=== PATIENT | male | born 1955 | race Caucasian/White ===

== ENCOUNTER 2016-07-31 12:06 | Emergency (ER) | payer MEDICARE ==
[2016-07-31] MEDS ORDERED: Ibuprofen TAB* 400 MG PO ONE (13:36)
--- NOTE | 2016-07-31 13:40 | UC ---
Lower Extremity/Ankle HPI - HPI Summary HPI Summary: 61 yo M with left leg pain for a month, worse in the last few days. Does not associate injury with the pain, but has fallen in the past 3 months. Pain is worst in his right ant thigh, worse with weight bearing. Pt states he has tingling and pain in his right ant tibia. No def calf pain. No chest pain or SOB. No hx blood clots, PE or DVT in pt or family. - History of Current Complaint Chief Complaint: UCLowerExtremity Stated Complaint: LEFT LEG PAIN Time Seen by Provider: 07/31/16 13:29 Hx Obtained From: Patient Onset/Duration: Gradual Onset, Lasting Weeks, Still Present, Worse Since - few days Severity Initially: Moderate Severity Currently: Moderate Pain Intensity: 2 Pain Scale Used: 0-10 Numeric Aggravating Factor(s): Standing Able to Bear Weight: Yes - painful - Risk Factors DVT Risk Factors: Negative - Allergies/Home Medications Allergies/Adverse Reactions: Allergies Allergy/AdvReac Type Severity Reaction Status Date / Time Penicillins [PCN] Allergy Difficulty Verified 07/31/16 13:05 Breathing Haloperidol [From Haldol] AdvReac twitch Verified 07/31/16 13:05 PMH/Surg Hx/FS Hx/Imm Hx Previously Healthy: Yes - Surgical History Surgical History: Yes Surgery Procedure, Year, and Place: TONSILLECTOMY - Family History Known Family History: Positive: Cardiac Disease - Social History Alcohol Use: Occasionally Substance Use Type: None Smoking Status (MU): Never Smoked Tobacco Review of Systems Constitutional: Negative Skin: Negative Eyes: Negative ENT: Negative Respiratory: Negative Cardiovascular: Negative Gastrointestinal: Negative Genitourinary: Negative Motor: Negative Neurovascular: Negative Musculoskeletal: Arthralgia, Myalgia Neurological: Negative Psychological: Negative All Other Systems Reviewed And Are Negative: Yes Physical Exam Triage Information Reviewed: Yes Appearance: Well-Nourished, Ill-Appearing, Pain Distress Vital Signs: Initial Vital Signs Temp 99.5 F 07/31/16 12:52 Pulse 79 07/31/16 12:52 BP 96/61 07/31/16 12:52 Vital Signs Reviewed: Yes Eyes: Positive: Conjunctiva Clear ENT: Positive: Normal ENT inspection Neck: Positive: Supple Respiratory: Positive: Lungs clear, Normal breath sounds, No respiratory distress, No accessory muscle use Cardiovascular: Positive: RRR, No Murmur, Pulses Normal, Brisk Capillary Refill Abdomen Description: Positive: Nontender, Soft Bowel Sounds: Positive: Present Musculoskeletal: Positive: Strength Intact, ROM Intact, No Edema, Other: - no calf tenderness, pain right ant groin muscle tendon Neurological: Positive: Alert, Muscle Tone Normal Psychological Exam: Normal Skin Exam: Normal Lower Extremity Course/Dx - Course Course Of Treatment: left hip and pelvis xray: neg. US left leg: neg. Will advise limited wt bearing with crutches, NSAID, and f/u with ortho if no improvement - Differential Dx/Diagnosis Differential Diagnosis/HQI/PQRI: Contusion, DVT, Fracture (Closed), Sprain, Strain, Tendonitis Provider Diagnoses: left leg groin pull, muscle strain Discharge - Discharge Plan Condition: Stable Disposition: HOME Prescriptions: Ibuprofen TAB* [Motrin TAB* 600 MG] 600 mg PO Q6H PRN #30 tab PRN Reason: Pain Patient Education Materials: Crutch Instructions (ED), Muscle Strain (ED), Groin Strain (ED) Referrals: Anuel Mei MD [Medical Doctor] - 3 Days (follow up with the orthopedist if no improvement ) Evan Veloz PA [Primary Care Provider] -
--- NOTE | 2016-07-31 14:03 | RAD ---
HISTORY: Left hip pain, fall COMPARISONS: None VIEWS: 3, Frontal view of the pelvis with frontal and frog-leg views of the left hip FINDINGS: BONE DENSITY: Normal. BONES: There is no displaced fracture. JOINTS: There is moderate osteoarthritis of the hips ALIGNMENT: There is no dislocation. SOFT TISSUES: Unremarkable. OTHER FINDINGS: There are advanced degenerative changes of the lower lumbar spine IMPRESSION: NO ACUTE OSSEOUS INJURY. IF SYMPTOMS PERSIST, RECOMMEND REPEAT IMAGING.
--- NOTE | 2016-07-31 14:22 | RAD ---
Indication: Left leg edema. Duplex Doppler sonography of the deep venous system of the left lower extremity deep venous system was performed. Bilaterally the common femoral veins appear patent and compressible. Left proximal greater saphenous vein, proximal deep femoral vein, femoral vein, popliteal vein, posterior tibial veins and peroneal veins appear patent and compressible. IMPRESSION: NO EVIDENCE OF DEEP VENOUS THROMBOSIS IS IDENTIFIED.
[2016-07-31 14:23] VITALS: BP 97/62
== END 2016-07-31 15:24 | disposition home or self-care (01) ==
LOC: UCCORT 12:06
DX: S39.011A Strain of muscle, fascia and tendon of abdomen, initial encounter (principal)
CPT/HCPCS: 99213; A9270-GY; G0463

== ENCOUNTER 2016-10-20 17:54 | Emergency (ER) | payer MEDICARE ==
[2016-10-20 18:32] VITALS: BP 114/73
--- NOTE | 2016-10-20 19:37 | RAD ---
INDICATION: RIGHT elbow pain and worsening soft tissue swelling 1 week post fall. Redness and warmth around laceration on posterior aspect of elbow. COMPARISON: No relevant prior exams available on the [facility] PACS for comparison. TECHNIQUE: AP, lateral, and oblique views RIGHT elbow. REPORT: Significant soft tissue swelling over the dorsum superficial to the olecranon process. No conspicuous foreign body or subcutaneous emphysema. Negative for joint effusion, fracture, or malalignment. Diffuse mild osteophytosis. Calcific tendinopathy at the lateral epicondyle origin of the common extensor tendon. IMPRESSION: 1. Significant dorsal soft tissue swelling. 2. Mild osteoarthritis and stigmata of chronic lateral epicondylitis.
--- NOTE | 2016-10-20 19:52 | UC ---
Elbow Pain - HPI Summary HPI Summary: right elbow pain x 1 week s/p fall 1 week ago , injury to right elbow + pain and swelling, + redness no fever, no chills - History of Current Complaint Chief Complaint: UCUpperExtremity Stated Complaint: S/P FALL -RT ELBOW PAIN Time Seen by Provider: 10/20/16 18:24 Hx Obtained From: Patient Onset/Duration: Weeks - 1, Still Present Severity Initially: Moderate Severity Currently: Severe Pain Intensity: 3 Pain Scale Used: 0-10 Numeric Location Of Pain: Is Discrete @ - right elbow Character: Aching, Throbbing Aggravating Factor(s): Movement Alleviating Factor(s): Rest Associated Signs And Symptoms: Positive: Swelling, Redness, Weakness. Negative : Bruising, Fever - Allergies/Home Medications Allergies/Adverse Reactions: Allergies Allergy/AdvReac Type Severity Reaction Status Date / Time Penicillins [PCN] Allergy Difficulty Verified 10/20/16 18:26 Breathing Haloperidol [From Haldol] AdvReac twitch Verified 10/20/16 18:26 PMH/Surg Hx/FS Hx/Imm Hx Cardiovascular History: Hypertension - Surgical History Surgical History: Yes Surgery Procedure, Year, and Place: TONSILLECTOMY - Family History Known Family History: Positive: Cardiac Disease, Hypertension - Social History Alcohol Use: Occasionally Substance Use Type: None Smoking Status (MU): Never Smoked Tobacco Review of Systems Constitutional: Negative Skin: Negative Eyes: Negative ENT: Negative Respiratory: Negative Cardiovascular: Negative All Other Systems Reviewed And Are Negative: Yes Physical Exam Triage Information Reviewed: Yes Appearance: Well-Appearing, No Pain Distress, Well-Nourished Vital Signs: Initial Vital Signs Temp 99.3 F 10/20/16 18:28 Pulse 63 10/20/16 18:28 Resp 16 10/20/16 18:28 BP 114/73 10/20/16 18:28 Pulse Ox 99 10/20/16 18:28 Vital Signs Reviewed: Yes Eye Exam: Normal Eyes: Positive: Conjunctiva Clear ENT: Positive: Normal ENT inspection, Hearing grossly normal, Pharynx normal Neck: Positive: Supple, Nontender, No Lymphadenopathy Respiratory: Positive: Chest non-tender, Lungs clear, Normal breath sounds Cardiovascular: Positive: RRR, No Murmur, Pulses Normal Musculoskeletal: Positive: Other: - right elbow: + swelling, erythema, tenderness and loecrenone bursa Elbow Pain Course/Dx - Differential Dx/Diagnosis Provider Diagnoses: elbow bursitis Discharge - Discharge Plan Condition: Stable Disposition: HOME Prescriptions: Clindamycin Cap(NF) [Clindamycin Cap 300 mg Cap(NF)] 300 mg PO TID #30 cap Patient Education Materials: Elbow Bursitis (ED) Referrals: Evan Veloz PA [Primary Care Provider] - 5 Days
== END 2016-10-20 19:42 | disposition home or self-care (01) ==
LOC: UCCORT 17:54
DX: M70.31 Other bursitis of elbow, right elbow (principal); Z88.5 Allergy status to narcotic agent; Z88.0 Allergy status to penicillin; I10 Essential (primary) hypertension
CPT/HCPCS: 99212; G0463

== ENCOUNTER 2017-04-11 07:35 | Emergency (ER) | payer MEDICARE ==
[2017-04-11 08:21] VITALS: BP 88/56
--- NOTE | 2017-04-11 08:31 | UC ---
Respiratory Complaint HPI - HPI Summary HPI Summary: slight nonproductive cough for over a week. very fatigued but working alot. denies any fever, chills , no c/p or sob. ears feel full and he has sinus congestion at this time. taking nyquil at night for congestion and ibuprofen for ear pressure. - History of Current Complaint Chief Complaint: UCGeneralIllness Stated Complaint: STYLES/COUGH/FEVER Time Seen by Provider: 04/11/17 08:12 Hx Obtained From: Patient Onset/Duration: Lasting Weeks Timing: Constant Severity Initially: Moderate Severity Currently: Moderate Pain Intensity: 4 Character: Cough: Nonproductive Alleviating Factors: OTC Meds Associated Signs And Symptoms: Positive: Nasal Congestion - Risk Factors Cardiac Risk Factors: Hypertension, Elevated Lipids Pseudomonas Risk Factors: Negative Tuberculosis Risk Factors: Negative - Allergies/Home Medications Allergies/Adverse Reactions: Allergies Allergy/AdvReac Type Severity Reaction Status Date / Time haloperidol [From Haldol] Allergy See Comment Verified 04/11/17 08:01 Penicillins Allergy Difficulty Verified 04/11/17 08:01 Breathing Home Medications: Home Medications Antidepressant 300 mg PO DAILY 04/11/17 [History Confirmed 04/11/17] Dm/Acetaminophen/Doxylamine [Vicks Nyquil Cold & Flu Liquid] 236 ml PO BEDTIME PRN 04/11/17 [History Confirmed 04/11/17] Melatonin/Pyridoxine HCl (B6) [Melatonin 1 mg Tablet] 0 tab PO BEDTIME 04/11/17 [History Confirmed 04/11/17] Multivitamins/Minerals TAB* [Theragran/minerals TAB*] 1 tab PO DAILY 04/11/17 [ History Confirmed 04/11/17] Tylenol Flu 1 dose PO Q3H PRN 04/11/17 [History Confirmed 04/11/17] PMH/Surg Hx/FS Hx/Imm Hx Previously Healthy: Yes Endocrine History: Dyslipidemia Cardiovascular History: Hypertension Psychological History: Depression - Surgical History Surgical History: Yes Surgery Procedure, Year, and Place: TONSILLECTOMY - Family History Known Family History: Positive: Cardiac Disease, Hypertension - Social History Occupation: Employed Full-time Lives: With Family Alcohol Use: Rare Substance Use Type: None Smoking Status (MU): Never Smoked Tobacco Have You Smoked in the Last Year: No Review of Systems Constitutional: Fatigue Skin: Negative Eyes: Negative ENT: Ear Ache, Sinus Congestion Respiratory: Cough - nonprod Cardiovascular: Negative Gastrointestinal: Negative Genitourinary: Negative Motor: Negative Neurovascular: Negative Neurological: Headache Psychological: Negative Is Patient Immunocompromised?: No All Other Systems Reviewed And Are Negative: Yes Physical Exam Triage Information Reviewed: Yes Appearance: Ill-Appearing Vital Signs: Initial Vital Signs Temp 99.4 F 04/11/17 08:09 Pulse 67 04/11/17 08:09 Resp 20 04/11/17 08:09 BP 88/56 04/11/17 08:09 Pulse Ox 99 04/11/17 08:09 Vital Signs Reviewed: Yes Eye Exam: Normal ENT Exam: Normal Neck exam: Normal Respiratory Exam: Normal Cardiovascular Exam: Normal Abdominal Exam: Normal Bowel Sounds: Positive: Present Neurological Exam: Normal Psychological Exam: Normal Skin Exam: Normal UC Diagnostic Evaluation - Laboratory O2 Sat by Pulse Oximetry: 99 Respiratory Course/Dx - Course Course Of Treatment: take abx as directed - take with food to reduce gi upset and discussed use and common side effects of med. BP a little bit low - hold dose of lisinopril tonight and call pcp to have it rechecked early this week. increase fluid intake daily to prevent dehydration. take tylenol or ibuprofen as directed on bottle for pain/fever. f/u pcp if symptoms not resolving or getting worse - Differential Dx/Diagnosis Differential Diagnosis/HQI/PQRI: Sinusitis Provider Diagnoses: sinusitis Discharge - Discharge Plan Condition: Good Disposition: HOME Prescriptions: DOXYcycline CAP(*) [DOXYcycline 100MG CAP(*)] 100 mg PO DAILY 10 Days #20 cap Patient Education Materials: Sinusitis (ED) Referrals: Evan Veloz PA [Primary Care Provider] - 1 Week
== END 2017-04-11 09:07 | disposition home or self-care (01) ==
LOC: UCCORT 07:35
DX: J32.9 Chronic sinusitis, unspecified (principal); Z88.0 Allergy status to penicillin; Z88.8 Allergy status to other drugs, medicaments and biological substances
CPT/HCPCS: 99212; G0463

== ENCOUNTER 2017-06-02 14:03 | Emergency (ER) | payer MEDICARE ==
[2017-06-02 14:30] VITALS: BP 119/78
--- NOTE | 2017-06-02 15:05 | UC ---
Hip/Pelvis Pain - HPI Summary HPI Summary: 62 yo male with 2 month hx of progressively worsening left hip pain point to area around greater troch as were it hurts the most hurts to roll on left side hurt to bear wt worse with stairs /getting into and out of chair hx chronic constipation since a young adult no bladder dysfunction no back pain no leg numbness - History Of Current Complaint Chief Complaint: UCLowerExtremity Stated Complaint: LEFT LEG/HIP COMPLAINT Time Seen by Provider: 06/02/17 14:45 Hx Obtained From: Patient Onset/Duration: Gradual Onset, Lasting Weeks Timing: Constant Severity Initially: Mild Severity Currently: Moderate Pain Intensity: 6 Pain Scale Used: 0-10 Numeric Location: Discrete At: - see image Character Of Pain: Dull, Aching Aggravating Factor(s): Movement, Weight Bearing Alleviating Factor(s): Nothing - Allergies/Home Medications Allergies/Adverse Reactions: Allergies Allergy/AdvReac Type Severity Reaction Status Date / Time haloperidol [From Haldol] Allergy See Comment Verified 04/11/17 08:01 Penicillins Allergy Difficulty Verified 04/11/17 08:01 Breathing PMH/Surg Hx/FS Hx/Imm Hx Previously Healthy: Yes Endocrine History: Dyslipidemia Cardiovascular History: Hypertension - Surgical History Surgical History: Yes Surgery Procedure, Year, and Place: TONSILLECTOMY - Family History Known Family History: Positive: Cardiac Disease, Hypertension - Social History Alcohol Use: Rare Substance Use Type: None Smoking Status (MU): Never Smoked Tobacco Have You Smoked in the Last Year: No Review of Systems Constitutional: Negative Skin: Negative Eyes: Negative ENT: Negative Respiratory: Negative Cardiovascular: Negative Gastrointestinal: Negative Genitourinary: Negative Motor: Negative Neurovascular: Negative Musculoskeletal: Arthralgia Neurological: Negative Psychological: Negative Is Patient Immunocompromised?: No All Other Systems Reviewed And Are Negative: Yes Physical Exam Triage Information Reviewed: Yes Appearance: Well-Appearing, No Pain Distress, Well-Nourished Vital Signs: Initial Vital Signs Temp 98.4 F 06/02/17 14:20 Pulse 80 06/02/17 14:20 Resp 20 06/02/17 14:20 BP 119/78 06/02/17 14:20 Pulse Ox 98 06/02/17 14:20 Eyes: Positive: Conjunctiva Clear ENT: Positive: Hearing grossly normal. Negative: Nasal congestion, Nasal drainage, Muffled voice, Hoarse voice Neck: Positive: Supple Respiratory: Positive: Normal breath sounds, No respiratory distress, No accessory muscle use, Respiratory distress Cardiovascular: Positive: RRR, No Murmur Musculoskeletal: Positive: No Edema, Other: - see image Neurological: Positive: Alert Psychological Exam: Normal Skin Exam: Normal Diagnostics - Radiology No standard instances Xray Interpretation: No Acute Changes - Degenerative changes of the left hip Radiology Interpretation Completed By: Radiologist Hip Injury Course/Dx - Differential Dx/Diagnosis Provider Diagnoses: Left greater trochanteric bursitis Discharge - Sign-Out/Discharge Documenting (check all that apply): Discharge - Discharge Plan Condition: Stable Disposition: HOME Prescriptions: Naproxen TAB* [Naprosyn 375 mg TAB*] 375 mg PO BID PRN #30 tab PRN Reason: Pain Patient Education Materials: Hip Bursitis (ED) Referrals: Evan Veloz PA [Primary Care Provider] - 1 Week Additional Instructions: PT consult heat - Billing Disposition and Condition Condition: STABLE Disposition: HOME Images Front/Back of Body, Lg (Herkimer): 1 - tender great troch/limited ROM. (-) SLR
--- NOTE | 2017-06-02 15:14 | RAD ---
Indication: Left hip pain. 2 views of left hip and an AP view of the pelvis demonstrates degenerative changes of left hip with osteophyte formation. No fracture is identified. Pelvic ring is otherwise unremarkable. No pelvic masses are identified. IMPRESSION: Degenerative changes of the left hip.
== END 2017-06-02 15:32 | disposition home or self-care (01) ==
LOC: UCCORT 14:03
DX: M70.62 Trochanteric bursitis, left hip (principal); Z88.0 Allergy status to penicillin; Z88.8 Allergy status to other drugs, medicaments and biological substances; I10 Essential (primary) hypertension
CPT/HCPCS: 99212; G0463

== ENCOUNTER 2017-10-07 08:13 | Inpatient (IN) | payer MEDICARE ==
--- NOTE | 2017-09-27 13:56 | HP ---
Amended report to enter cosigning physician. HISTORY AND PHYSICAL: DATE OF ADMISSION/SURGERY: 10/07/17 DATE OF OFFICE VISIT: 09/27/17 SURGEON: Jemima Agee MD* (dictated by MURIEL Almeida). PROCEDURE: Left total hip arthroplasty. CHIEF COMPLAINT: Left hip pain. HISTORY OF PRESENT ILLNESS: Mr. Barahona is a 62-year-old gentleman with complaints of left hip pain secondary to end-stage osteoarthritis. He has failed a conservative treatment and elected to proceed with a left total hip arthroplasty, which is scheduled for 10/07/17. PAST MEDICAL HISTORY: Hypertension, high cholesterol, depression and anxiety. PAST SURGICAL HISTORY: Tonsillectomy, adenoidectomy and teeth extraction. CURRENT MEDICATIONS: 1. Tramadol 50 mg as needed. 2. Simvastatin 20 mg daily. 3. Tamsulosin 0.4 mg daily. 4. Lisinopril 10 mg daily. 5. Duloxetine 60 mg twice daily. 6. Wellbutrin 150 mg daily. 7. Vitamin D. 8. Aspirin 81 mg a day. ALLERGIES: PENICILLIN, ZOLOFT, PAXIL, and HALDOL. FAMILY HISTORY: Diabetes, heart disease, hypertension, stroke, and cancer. SOCIAL HISTORY: This is a 62-year-old lives with his girlfriend. He does not smoke or use drugs. Uses occasional alcohol. REVIEW OF SYSTEMS: A complete 14-point review of systems was all negative and noncontributory. He denies history of DVT, PE, hepatitis, HIV, or anesthesia problems. PHYSICAL EXAMINATION GENERAL: Well developed, well nourished, in no acute distress. VITAL SIGNS: He stands 67 inches tall, weighs 202 pounds. His blood pressure is 111/69, his heart rate is 82. HEENT: Normocephalic, atraumatic. NECK: Supple. No palpable lymph nodes. PULMONARY: Lungs are clear to auscultation bilaterally. CARDIO: Regular rate and rhythm. Strong S1, S2. ABDOMEN: Soft, nontender, nondistended. NEUROLOGICAL: He is alert and oriented x3. MUSCULOSKELETAL: Left lower extremity, skin is intact. There are no open wounds or abrasions. He walks with an antalgic type gait favoring to his left hip. He has decreased internal and external rotation of the left hip. 2+ dorsalis pedis pulses. Intact sensation. His lower extremity muscle group strengths are intact at 5/5. ASSESSMENT AND PLAN: Mr. Barahona is a 62-year-old gentleman with end-stage osteoarthritis of the left hip. He has failed conservative treatment and elected to proceed with a left total hip arthroplasty, which is scheduled for with Dr. Agee. Dr. Agee discussed the risks and benefits of the surgery at today's visit and all of his questions were answered. He will follow up with Dr. Agee in 2 weeks after the surgery. MURIEL ALMEIDA [id number]/[facility] #: [id number] TELMA
[~2017-10-07 08:13] MED LIST: Buffered Lidocaine 0.9% SYRIN* 5 ML/SYR SYRINGE INTRADERM ONE; Dexamethasone IV* 4 MG/ML 1 ML (4 MG) IV SLOW PU ONE; Famotidine IV* 10 MG/ML 2 ML (20 mg) IV ONE
--- OUTSIDE RECORDS SUMMARY | 2017-10-07 08:20 | XMS REPORT ---
:1955 External Reference #:[id number] Author Organization [facility] Address [address] [place] [address] [place] [address] Phone [phone] Care Team Providers Name Role Phone Milagros Hussein MD Primary Care Physician Unavailable Payers Type Date Identification Numbers Payment Provider Subscriber Commercial Policy Number: [id number] [employer] CHRIS Barahona PayID: [id number] [address] [address] [place] [address] Problems Date Description Provider Status Onset: 09/10/2017 Localized, primary osteoarthritis of the Jemima Tobi Agee Active pelvic region and thigh Family History Date Family Member(s) Problem(s) Comments General Diabetes General Heart Disease General Hypercholesterolemia General Stroke General Cancer Social History Type Date Description Comments Lives With friend Occupation Disabled ETOH Use Occasionally consumes alcohol Smoking Patient has never smoked Exercise Type/Frequency Exercises regularly Allergies, Adverse Reactions, Alerts Date Description Reaction Status Severity Comments 09/10/2017 Penicillin active 09/27/2017 Zoloft active 09/27/2017 Paxil active 09/27/2017 Haldol active Medications Medication Date Status Form Strength Qnty SIG Indications Ordering Provider Tramadol HCL Active Tablets 50mg 28tabs 1 tab every Jemima 018 6 hours as Anuel needed for Tobi pain BP Pill Active Unknown 000 Anxiety Pill Active Unknown 000 Aspirin 81 Low Active 1 by mouth Unknown Dose 000 every day Vitamin D Active Unknown 000 Bupropion HCL Active Tablets 150mg Take One Unknown ER (SR) 000 ER 12HR Tablet By Mouth Every Day Duloxetine HCL Active Caps DR 60mg Unknown 000 Part Lisinopril Active Tablets 10mg Veloz, 000 Armin Carmen, SHAWANDA Diazepam Active Tablets 10mg Take 1 Unknown 000 Tablet By Mouth 1 Hour Before Injection Or Procedure Max Day 1 Simvastatin Active Tablets 20mg Take One Unknown 000 Tablet By Mouth AT Bedtime Vital Signs Date Vital Result Comment 09/27/2017 Height 67 inches 5'7" Weight 202.00 lb BP Systolic 111 mmHg BP Diastolic 69 mmHg Respiratory Rate 16 /min Pain Level 7 BMI (Body Mass Index) 31.6 kg/m2 09/10/2017 Height 67 inches 5'7" Weight 203.00 lb Heart Rate 100 /min BP Systolic 120 mmHg BP Diastolic 74 mmHg BMI (Body Mass Index) 31.8 kg/m2 Results Description No Information Procedures Description No Information Encounters Type Date Location Provider CPT E/M Dx Office Visit 09/10/2017 [facility] Jemima Agee M.D. [id number] M25.551 8:30a Of ..A. M25.552 M16.11 M16.12 Plan of Care Future Appointment(s):10/27/2017 11:15 am - Jemima Agee M.D. at [facility].10/07/2017 3:30 pm - [facility]10/07/2017 3:30 pm - MURIEL Colindres at [facility].10/07/2017 3:30 pm - Jemima Agee M.D. at [facility].09/27/2017 - Jemima Agee M.D.M25.552 Pain in left hipNew Xrays:Pelvis 1-2 VWSFollow up:Follow up: 2 weeks after icdjrinD52.12 Unilateral primary osteoarthritis, left hip
--- OUTSIDE RECORDS SUMMARY | 2017-10-07 08:20 | XMS REPORT ---
:1955 External Reference #:[id number] Author Organization [facility] Address [address] [place] [address] Phone [phone] Care Team Providers Name Role Phone Milagros Hussein MD Care Team Information Senior Court Office Assistant Unavailable Milagros Hussein MD Primary Care Physician Unavailable Payers Type Date Identification Numbers Payment Provider Subscriber Commercial Policy Number: [id number] [employer] Rajat Barahona PayID: [id number] [address] [address] [place] [address] Medigap Part B PayID: [id number] [facility] Rajat Barahona [facility] [address] [place] [address] Problems Date Description Provider Status Onset: 09/06/2017 Essential hypertension Milagros Hussein MD Active Onset: 01/06/2011 Strain of rotator cuff capsule Jerry Funez MD Active Onset: 07/05/2017 Arthralgia of the pelvic region and Milagros Hussein MD Active thigh Onset: 07/05/2017 Strabismus Milagros Hussein MD Active Onset: 07/05/2017 Schizoaffective disorder, depressive Milagros Hussein MD Active type Onset: 07/05/2017 Major depressive disorder, single Milagros Hussein MD Active episode, unspecified Onset: 07/05/2017 Needle phobia Milagros Hussein MD Active Onset: 07/29/2017 Localized, primary osteoarthritis of Narciso Jacques M.D. Active the pelvic region and thigh Onset: 09/06/2017 Trochanteric bursitis Milagros Hussein MD Active Onset: 09/06/2017 Osteoarthritis of hip, unspecified Milagros Hussein MD Active Family History Date Family Member(s) Problem(s) Comments General Diabetes General Lung Cancer Father due to COPD () Father Depression Father Heart Disease Mother due to Cancer () Mother Anxiety Mother Chronic Obstructive Pulmonary Disease (COPD) Mother Lung Cancer Children 1 First Son Anxiety Siblings 1 First Sister Depression Social History Type Date Description Comments Education Highest level completed, 9th in special ed, can't read well grade Lives With Girlfriend Anne Marie Mcghee Occupation Disabled psychiatric, schizophrenia in past Cigarette Use Never Smoked Cigarettes ETOH Use Rarely consumes alcohol Smoking Patient has never smoked Recreational Drug Use Never Used Drugs Daily Caffeine Consumes on average 1 cup of regular coffee per day Allergies, Adverse Reactions, Alerts Date Description Reaction Status Severity Comments 01/06/2011 Penicillins active Unsure of reaction 01/06/2011 Haldol active Bad Twitch 07/05/2017 Zoloft active 09/30/2017 Paxil active Medications Medication Date Status Form Strength Qnty SIG Indications Ordering Provider Aspir-81 07/05/ Active Tablets DR 81mg 1 by mouth 2017 every day MD Keenan Multivitamin 07/05/ Active Tablets 30tabs 1 by mouth 2017 every day MD Keenan Vitamin D-3 07/05/ Active Capsules 1000Unit 100cap 1 by mouth 2017 s every day MD Keenan Amitriptyline / Active Tablets 50mg Take One Unknown HCL 0000 Tablet By Mouth AT Bedtime Bupropion HCL / Active Tablets ER 150mg Take One Unknown ER (SR) 0000 12HR Tablet By Mouth Every Day Lisinopril / Active Tablets 10mg Take 1/2 Unknown 0000 Tablet By Mouth Every Day Tamsulosin HCL / Active Capsules 0.4mg Take One Unknown 0000 Capsule By Mouth Every Day Simvastatin / Active Tablets 20mg Take One Unknown 0000 Tablet By Mouth AT Bedtime Duloxetine HCL / Active Caps DR 60mg 1 by mouth Unknown 0000 Part twice a day Diazepam 09/06/ Hx Tablets 10mg 3tabs take one F40.231 2017 - tablet by Keenan 09/30/ mouth 1 hr 2017 before injection or procedure Reference #: [id number] F25.1 Diclofenac 08/28/2017 - Hx Gel 1% 100gm 2 g topica Narciso Sodium 09/30/2017 right hip 4 Pompo, M.D. times a day Diclofenac 08/16/2017 - Hx Cream 3% 5000gm apply 4g to M16. Narciso Sodium 08/28/2017 left hip 4 12 Pompo, M.D. times daily Lorazepam 07/05/2017 - Hx Tablets 2mg 10tabs 1 Tab 30 Milagros 09/06/2017 Min Before MD Keenan Injection; May Repeat After 1 HR If Needed Celecoxib 07/05/2017 - Hx Capsules 200mg 14caps take one M25. 09/30/2017 capsule by 552 MD Keenan mouth every day with food or snack Seroquel - Hx Tablets 100mg 1 PO QHS Unknown 09/30/2017 Duloxetine HCL - Hx Caps DR Part 30mg 1 PO qd Unknown 09/30/2017 Vital Signs Date Vital Result Comment 09/30/2017 BP Systolic Sitting Left Arm 126 mmHg BP Diastolic Sitting Left Arm 72 mmHg Heart Rate 80 /min Respiratory Rate 18 /min Height 67 inches 5'7" Weight 205.00 lb BMI (Body Mass Index) 32.1 kg/m2 BSA (Body Surface Area) 2.04 m2 [place] body weight in kilograms 67 09/06/2017 BP Systolic 134 mmHg BP Diastolic 82 mmHg Body Temperature 97.0 F Heart Rate 88 /min Respiratory Rate 20 /min Height 67 inches 5'7" Weight 202.00 lb BMI (Body Mass Index) 31.6 kg/m2 BSA (Body Surface Area) 2.03 m2 [place] body weight in kilograms 67 O2 % BldC Oximetry 97 % 08/16/2017 BP Systolic Sitting Left Arm 113 mmHg BP Diastolic Sitting Left Arm 71 mmHg Body Temperature 98.4 F Heart Rate 86 /min Respiratory Rate 18 /min Height 67 inches 5'7" Weight 199.00 lb BMI (Body Mass Index) 31.2 kg/m2 BSA (Body Surface Area) 2.02 m2 [place] body weight in kilograms 67 O2 % BldC Oximetry 97 % 07/29/2017 BP Systolic Sitting Left Arm 118 mmHg BP Diastolic Sitting Left Arm 64 mmHg Body Temperature 97.6 F Heart Rate 86 /min Respiratory Rate 17 /min Height 67 inches 5'7" Weight 199.00 lb BMI (Body Mass Index) 31.2 kg/m2 BSA (Body Surface Area) 2.02 m2 [place] body weight in kilograms 67 07/05/2017 BP Systolic 112 mmHg BP Diastolic 68 mmHg Body Temperature 97.6 F Heart Rate 77 /min Respiratory Rate 17 /min Height 67 inches 5'7" Weight 198.00 lb BMI (Body Mass Index) 31.0 kg/m2 BSA (Body Surface Area) 2.01 m2 [place] body weight in kilograms 67 O2 % dC Oximetry 96 % 01/06/2011 Height 67 inches 5'7" Weight 216.00 lb BMI (Body Mass Index) 33.8 kg/m2 Results Test Date Test Result H/L Range Note Comprehensive Metabolic Panel 09/23/2017 Glucose 96 mg/dL 74-106 1 BUN 15 mg/dL 7-18 1 Creatinine 0.9 mg/dL 0.6-1.3 1 Glom Filtration Rate, Estimate >60 mL/min >60 1 If >60 mL/min >60 1, 2 BUN/Creat 16.6 ratio 1 Sodium 140 mmol/L 136-145 1 Potassium 4.2 mmol/L 3.5-5.1 1 Chloride 105 mmol/L 98-107 1 Carbon Dioxide 29 mmol/L 21-32 1 Anion Gap 6 mEq/L Low 8-16 1 Calcium 8.7 mg/dL 8.5-10.1 1 Total Protein 7.3 g/dL 6.4-8.2 1 Albumin 3.5 g/dL 3.4-5.0 1 Globulin 3.8 g/dL 1.9-4.3 1 Alb/Glob 0.9 ratio 1 Bilirubin,Total 0.5 mg/dL 0.2-1.0 1 Sgot/Ast 13 U/L Low 15-37 1, 3 SGPT/Alt 24 U/L 12-78 1 Alkaline Phosphatase 90 U/L 45-117 1 Comprehensive Metabolic Panel 08/31/2017 Glucose 104 mg/dL 74-106 4 BUN 15 mg/dL 7-18 4 Creatinine 0.9 mg/dL 0.6-1.3 4 Glom Filtration Rate, Estimate >60 mL/min >60 4 If >60 mL/min >60 4, 5 BUN/Creat 16.6 ratio 4 Sodium 143 mmol/L 136-145 4 Potassium 4.3 mmol/L 3.5-5.1 4 Chloride 106 mmol/L 98-107 4 Carbon Dioxide 31 mmol/L 21-32 4 Anion Gap 6 mEq/L Low 8-16 4 Calcium 8.5 mg/dL 8.5-10.1 4 Total Protein 7.1 g/dL 6.4-8.2 4 Albumin 3.7 g/dL 3.4-5.0 4 Globulin 3.4 g/dL 1.9-4.3 4 Alb/Glob 1.1 ratio 4 Bilirubin,Total 0.6 mg/dL 0.2-1.0 4 Sgot/Ast 16 U/L 15-37 4 SGPT/Alt 23 U/L 12-78 4 Alkaline Phosphatase 86 U/L 45-117 4 LDL Cholesterol Profile 08/31/2017 Cholesterol 139 mg/dL <200 4, 6 Triglycerides 74 mg/dL <150 4, 7 HDL Cholesterol 37 mg/dL Low >40 4, 8 LDL-Cholesterol 87 mg/dL < 100 4, 9 CBS W/Automated Diff 08/31/2017 White Blood Count 5.9 K/uL 3.4-10.5 4 Red Blood Count 4.93 M/uL 4.20-5.80 4 Hemoglobin 14.6 gm/dL 12.8-17.0 4 Hematocrit 44.1 % 38.0-48.0 4 Mean Cell Volume 89.5 fl 80.0-96.0 4 Mean Corpuscular HGB 29.6 pg 27.0-33.0 4 Mean Corpuscular HGB Conc 33.1 g/dL 31.7-36.0 4 Platelet Count 168 K/uL 155-360 4 Red Cell Distri Width SD 40.3 fl 36-51 4 Red Cell Distri Width %CV 12.7 % 11.6-15.8 4 Mean Platelet Volume 10.3 fL 6.6-10.6 4 Neut% 67.8 % 33.0-73.0 4 Lymph % 22.0 % 20.0-42.0 4 [place] % 5.6 % 0.0-10.0 4 Eo% 4.1 % 0.0-6.6 4 Bas% 0.5 % 0.0-1.1 4 Neut# 4.02 K/uL 1.8-7.0 4 Lymph # 1.30 K/uL 1.0-4.0 4 [place] # 0.33 K/uL 0.0-0.8 4 Eos # 0.24 K/uL 0.0-0.5 4 Baso # 0.03 K/uL 0.0-0.1 4 Vitamin B12 And Folate 02/12/2015 Vitamin B12 318 pg/mL 193-986 Folic Acid 10.8 ng/mL 3.1-17.5 Laboratory test finding 02/12/2015 Ferritin 53 ng/mL 26-388 1 M16.9, M70.62, M25.552 has appt 09/30/17 for surgical clearance 2 Note: Persistent reduction for 3 months or more in an eGFR <60 mL/min/1.73 m2 defines CKD. Patients with eGFR values >/=60 mL/min/1.73 m2 may also have CKD if evidence of persistent proteinuria is present. The original MDRD equation for estimated GFR is not valid for patients less than 18 years of age. Additional information may be found at www.kdoqi.org. 3 Values below the stated reference ranges of AST and ALT can be seen in normal populations. Clinical correlation is suggested. 4 I10 E78.5 Z13.0 5 Note: Persistent reduction for 3 months or more in an eGFR <60 mL/min/1.73 m2 defines CKD. Patients with eGFR values >/=60 mL/min/1.73 m2 may also have CKD if evidence of persistent proteinuria is present. The original MDRD equation for estimated GFR is not valid for patients less than 18 years of age. Additional information may be found at www.kdoqi.org. 6 Reference Guidelines*: Desirable: ........... < 200 mg/dL Borderline High: ..... 200-239 mg/dL High: ................ >=240 mg/dL * The National Cholesterol Education Program (NCEP) 7 Reference Guidelines*: Normal: ............. < 150 mg/dL Borderline High: .... 150-199 mg/dL High: ............... 200-499 mg/dL Very High: .......... > 500 mg/dL * Source: National Cholesterol Education Program (NCEP) 8 Reference Guidelines*: Low HDL: ..... < 40 mg/dL Normal: ..... 40-60 mg/dL Desirable: ... > 60 mg/dL *The National Cholesterol Education Program(NCEP) 9 Reference Guidelines*: Optimal:........... <100 mg/dL Near Optimal....... 100-129 mg/dL Borderline High.... 130-159 mg/dL High............... 160-189 mg/dL Very High.......... >=190 mg/dL * Source: National Cholesterol Education Program (NCEP) Procedures Date CPT Code Description Status 07/29/2017 55284 Radiologic Exam Hip Unilateral With Pelvis 2-3 Views Completed 03/08/2015 95255 Psychiatric Diag Eval W/Medical Service Completed 03/07/2015 02674 EKG Interpretation And Report Only Completed 02/19/2011 49466 EKG Interpretation And Report Only Completed Encounters Type Date Location Provider CPT E/M Dx Office Visit 09/06/2017 10:45a [facility] [place] [address] M16.9 M70.62 F40.231 I10 F25.1 Office Visit 08/16/2017 9:15a [facility] Narciso Jacques M.D. 31111 M16.12 Office Visit 07/29/2017 2:30p [facility] Narciso Jacques M.D. 51705 M25.552 M16.12 Office Visit 07/05/2017 10:15a [facility] [place] [address] M25.552 H50.9 F25.1 F32.9 F40.231 Office Visit 03/08/2015 11:23a [facility] Jose Antonio Gilbert M.D. 02848 F25.1 Medical Center Office Visit 02/06/2015 3:13p [facility] Jose Antonio Gilbert M.D. 69736 F32.9 Medical Center Office Visit 01/06/2011 11:10a Orthopaedic Office Jerry Funez 63444 840.4 Plan of Care Future Appointment(s):01/07/2018 10:15 am - Milagros Hussein MD at [facility]
--- OUTSIDE RECORDS SUMMARY | 2017-10-07 08:20 | XMS REPORT ---
:1955 External Reference #:[id number] Author Organization [facility] Address [address] [address] [place] [address] Phone [phone] Care Team Providers Name Role Phone Milagros Hussein MD Primary Care Physician Unavailable Payers Type Date Identification Numbers Payment Provider Subscriber Commercial Policy Number: [id number] [employer] [place] Rajat Barahona PayID: [id number] [address] [address] [place] [address] Problems Date Description Provider Status Onset: 09/10/2017 [...] Reaction Status Severity Comments 09/10/2017 Penicillin active Medications Medication Date Status Form Strength Qnty SIG Indications Ordering Provider Tramadol HCL 09/11/19 Active Tablets 50mg 28tabs 1 tab Jemima 18 every 6 Tobi Agee hours as needed for pain BP Pill Active Unknown 00 Anxiety Pill Active Unknown 00 Aspirin 81 Low Active 1 by Unknown Dose 00 mouth every day Vitamin D Active Unknown 00 Vital Signs Date Vital Result Comment 09/10/2017 Height 67 inches 5'7" Weight 203.00 lb Heart Rate 100 /min BP Systolic 120 mmHg BP Diastolic 74 mmHg BMI (Body Mass Index) 31.8 kg/m2 Results Description No Information Procedures Description No Information Plan of Care Future Appointment(s):10/06/2017 9:30 am [facility] - Jemima Agee M.D.M25.551 Pain in right hipM25.552 Pain in left hipM16.11 Unilateral primary osteoarthritis, right hipM16.12 Unilateral primary osteoarthritis, left hipFollow up:Follow up: 7- 10 days before surgery
[2017-10-07] MEDS ORDERED: Dexamethasone IV* 4 MG/ML 1 ML (4 MG) ONE (08:26)
[2017-10-07] MEDS ORDERED: Clindamycin 900 MG IVPREMIX(* 900 MG/50 ML SDV IV ONE (08:26)
[2017-10-07] MEDS ORDERED: Famotidine IV* 10 MG/ML 2 ML (20 mg) ONE (08:26)
[2017-10-07] MEDS ORDERED: celeCOXIB CAP* 200 MG PO ONE (11:06)
[2017-10-07] MEDS ORDERED: Gabapentin CAP(*) 300 MG PO ONE (11:07)
[2017-10-07] MEDS ORDERED: Ropivacaine (OR use only) 2 MG/ML 10 ML ONE (11:10)
[2017-10-07] MEDS ORDERED: ROPIVACAINE 5 MG/ML 30 ML BTL (0.5%) ONE (11:10)
[2017-10-07] MEDS ORDERED: celeCOXIB CAP* 100 MG ONE ×2 (11:15→11:16)
[2017-10-07] MEDS ORDERED: Gabapentin CAP(*) 300 MG ONE (11:15)
--- NOTE | 2017-10-07 13:38 | RAD ---
INDICATION: Left total hip replacement surgery. COMPARISON: Comparison is made with a prior x-ray study of the pelvis from September 27, 2017. TECHNIQUE: An AP view of the left hip was obtained in the operating room. FINDINGS: The patient is undergoing a total left hip replacement surgery. The acetabular prostheses is in place. There is also a femoral prostheses template in place. IMPRESSION: INTRAOPERATIVE CONTROL FILMS.
[2017-10-07] MEDS ORDERED: Magnesium Hydroxide LIQ* 30 ML UDC PO PRN (14:24)
[2017-10-07] MEDS ORDERED: Bisacodyl SUPP* 10 MG SUPP PR PRN (14:24)
[2017-10-07] MEDS ORDERED: Cyclobenzaprine TAB* 10 MG PO PRN (14:24)
[2017-10-07] MEDS ORDERED: oxyCODONE/Acetamin 5/325 MG* TAB PO PRN (14:24)
[2017-10-07] MEDS ORDERED: Ondansetron INJ* 2 MG/ML VIAL IV PRN ×2 (14:24→14:35)
[2017-10-07] MEDS ORDERED: oxyCODONE TAB* 5 MG TAB PO PRN (14:24)
[2017-10-07] MEDS ORDERED: diPHENhydraMINE IV* 50 MG/ML 1 ml VIAL (BENADRYL) IV PRN (14:24)
[2017-10-07] MEDS ORDERED: Morphine INJ* 2 MG/ML 1 ML SYRINGE (TWO MG - NEW SYRINGE VERSION) IV PRN (14:24)
[2017-10-07] MEDS ORDERED: Naloxone* 0.4 MG/ML 1 ML VIAL IV PRN (14:35)
[2017-10-07] MEDS ORDERED: HYDROmorphone INJ* 0.5 MG/0.5 ML SYRINGE IV PRN (14:35)
[2017-10-07] MEDS ORDERED: fentaNYL* 50 MCG/ML 2 ML VIAL (100 MCG VIAL) IV PRN (14:35)
[2017-10-07] MEDS ORDERED: fentaNYL* 50 MCG/ML 2 ML VIAL (100 MCG VIAL) ONE (15:02)
--- NOTE | 2017-10-07 15:58 | RAD ---
HISTORY: S/P LTHA COMPARISONS: September 27, 2017 VIEWS: 4 , Frontal view of the pelvis with frontal and crosstable lateral views FINDINGS: BONE DENSITY: Normal. BONES: The patient is status post left hip arthroplasty. There is no hardware failure or osteolysis. JOINTS: The patient is status post left hip arthroplasty. There is moderate osteoarthritis of the right hip. ALIGNMENT: There is no dislocation. SOFT TISSUES: Unremarkable. OTHER FINDINGS: None. IMPRESSION: STATUS POST LEFT HIP ARTHROPLASTY
[2017-10-07] MEDS ORDERED: oxyCODONE TAB* 5 MG TAB ONE (16:23)
--- NOTE | 2017-10-07 16:30 | PN ---
Progress Note - Progress Note Date of Service: 10/07/17 Note: resting comfortably, pain controlled with current meds; able to dorsi flex/ plantar flex, 2+ DP pulse, intact sensation; dressing c/d/i
[2017-10-07] MEDS: Acetaminophen TAB* 325 MG PO SCH ×2 (16:37→22:30)
[2017-10-07] MEDS ORDERED: Warfarin TAB(*) 6 MG PO ONE (17:00)
[2017-10-07] MEDS: Atorvastatin* 10 MG TAB PO SCH (17:34)
[2017-10-07] MEDS: Lisinopril TAB* 10 MG PO SCH (17:34)
[2017-10-07] MEDS: Docusate CAP* 100 MG PO SCH (19:37)
[2017-10-07] MEDS: Magnesium Hydroxide LIQ* 30 ML UDC PO SCH (19:37)
[2017-10-07] MEDS: DULoxetine DR CAP* 60 MG CAP.DR PO SCH (19:37)
[2017-10-07] MEDS: Clindamycin 600 MG IVPREMIX(* 600 MG/50 ML SDV IV SCH (19:41)
--- NOTE | 2017-10-07 21:11 | CONS ---
CC: Dr. Agee; CT Encarnacion * CONSULTATION REPORT: DATE OF CONSULT: 10/07/17 PATIENT OF: Dr. Agee. REFERRED TO: Hospitalist, Kaylene Ornelas DO REASON FOR CONSULT: Medical co-management. HISTORY OF PRESENT ILLNESS: Mr. Barahona is a 62-year-old gentleman with past medical history significant for hypertension, hyperlipidemia, and anxiety disorder as well as osteoarthritis, who was admitted to the hospital earlier today for a total left hip replacement. The patient reports chronic pains related to the left hip for years. He tried conservative measures including pain medication and physical therapy that unfortunately failed to maintain his function. He was found by the orthopedic group to be a good candidate for a left total hip replacement to be performed on an elective basis. He has history of schizophrenia and depression as well and he tells me that he has been doing very well lately and he has not been even taking some of his medications for the past few days. He denies any chest pain, shortness of breath, wheezing, palpitations, or any associated symptoms. He was seen at the recovery room after he had a successful left total hip replacement. He tells me that his pain is unremarkable and he has no nausea or vomiting at this time. Given his multiple medical issues, we were asked to see the patient in consultation to provide co-medical management. PAST MEDICAL HISTORY: As mentioned above, significant for: 1. Essential hypertension. 2. Osteoarthritis of the pelvis. 3. Strabismus. 4. Schizoaffective disorder. 5. Depression. 6. Hypertension. 7. Anxiety disorder. 8. Hypercholesterolemia. 9. Migraine headaches. 10. Benign prostatic hypertrophy. PAST SURGICAL HISTORY: Tonsillectomy back in 1968 as well as multiple dental extractions. CURRENT MEDICATIONS: His medications at home include: 1. Aspirin 81 mg p.o. daily. 2. Bupropion 150 mg p.o. q.a.m. 3. Vitamin D3 of 1000 units p.o. daily. 4. Cymbalta 60 mg p.o. b.i.d. 5. Lisinopril 10 mg p.o. daily. 6. Multivitamins 1 tablet p.o. daily. 7. Zocor 20 mg p.o. q.p.m. 8. Tamsulosin 0.4 mg p.o. daily. ALLERGIES: Multiple, including SERTRALINE, PENICILLIN, PAROXETINE, and HALOPERIDOL. FAMILY HISTORY: Reviewed and noncontributory. SOCIAL HISTORY: The patient lives with his girlfriend. He is a nonsmoker who denies alcohol intake and caffeine intake is minimal. He reports that his girlfriend is the healthcare proxy carrier and he wishes to be a full code. REVIEW OF SYSTEMS: See HPI. Otherwise, 12 points of review of systems were evaluated and were essentially negative. PHYSICAL EXAM: General: He is a pleasant, healthy-appearing, upper middle- aged gentleman, in no acute distress or discomfort at the time of consultation. Vitals: Reveal temperature of 97.3, pulse of 71, respirations of 18 with O2 sats of 98% on room air, and his blood pressure was 111/69. HEENT: Head is normocephalic, atraumatic. Sclerae anicteric. PERRLA. EOMs intact. Oropharynx is pink and moist. Neck: Supple. Trachea midline. No cervical adenopathy, thyromegaly, or JVD. Lungs: Clear to auscultation bilaterally. Heart: Regular rate and rhythm. Normal S1 and S2 without rubs, murmurs, or gallops. Back: With normal curvature, no CVA tenderness. Abdomen: Soft, round, nontender, and nondistended. There are no hernias, masses, or hepatosplenomegaly. Extremities: Without cyanosis, clubbing, or edema. Neurologic: He is awake, alert, and oriented. Handgrip is equal bilaterally. Tongue is midline and sensation was intact throughout. Rectal Exam: Deferred at this time. IMPRESSION: A 62-year-old gentleman with past medical history significant for hypertension, hyperlipidemia, anxiety and depression, as well as benign prostatic hypertrophy and osteoarthritis, who is postop #0, status post left total hip replacement. ASSESSMENT AND PLAN: 1. Status post left hip replacement. Management is per orthopedic team. The patient's pain appears to be well controlled at this point. He will restart physical therapy and occupational therapy in the morning. He appears to be in a good spirit and very comfortable at this point. 2. Hypertension. I will resume his lisinopril at 10 mg q.p.m. He appears to be normotensive at this point. We will keep close monitor of his blood pressure at surgical stay unit. 3. Hyperlipidemia. He will resume his statin therapy at home dose. 4. History of schizoaffective disorder, anxiety, and depression. We will continue his dose of bupropion and Cymbalta at home dose. 5. Benign prostatic hypertrophy. We will continue his tamsulosin 0.4 mg daily. 6. DVT prophylaxis: Per orthopedic team. The patient will be covered with Lovenox bridging to Coumadin with daily INR checks. 7. Code status: He is a full code. TIME SPENT: Approximately 45 minutes were spent consulting on this patient with greater than 50% taking history and performing physical exam. I discussed the case with my attending, Dr. Ornelas, who agreed to plan of care. Thank you for this consultation. MURIEL DE LEON [id number]/CPS #: [id number] TELMA
[2017-10-07] MEDS: oxyCODONE/Acetamin 5/325 MG* TAB PO PRN (22:30)
[2017-10-08] MEDS: Clindamycin 600 MG IVPREMIX(* 600 MG/50 ML SDV IV SCH ×2 (04:28→11:46)
[2017-10-08] MEDS: oxyCODONE/Acetamin 5/325 MG* TAB PO PRN ×3 (05:17→14:34)
[2017-10-08] MEDS: Acetaminophen TAB* 325 MG PO SCH ×3 (05:18→23:00)
[2017-10-08 06:11] LABS: Hematocrit 35 % (42-52); Hemoglobin 11.8 g/dl (14.0-18.0); Mean Platelet Volume 7.8 um3 (7.4-10.4); Platelet Count 183 10^3/ul (150-450)
[2017-10-08 06:16] LABS: INR 1.03 (0.77-1.02)
[2017-10-08 06:27] LABS: EGFR Non-African American 84.7 (>60)
[2017-10-08] MEDS: DULoxetine DR CAP* 60 MG CAP.DR PO SCH ×2 (08:06→21:08)
[2017-10-08] MEDS: Docusate CAP* 100 MG PO SCH ×2 (08:06→21:08)
[2017-10-08] MEDS: buPROPion SR TAB.SR* 150 MG PO SCH (08:06)
[2017-10-08] MEDS: Tamsulosin CAP* 0.4 MG PO SCH (08:06)
[2017-10-08] MEDS: Magnesium Hydroxide LIQ* 30 ML UDC PO SCH ×2 (08:06→21:08)
[2017-10-08] MEDS: Vitamin THERAPEUTIC TAB PO SCH (08:06)
[2017-10-08] MEDS: Enoxaparin(*) 30 MG/0.3 ML SYR SUBCUT SCH (11:46)
--- NOTE | 2017-10-08 12:05 | PN ---
Progress Note - Progress Note Date of Service: 10/08/17 SOAP: Subjective: [Pt was seen this am sitting up in chair. He states that he is doing very well. Very happy with his care at this point and feels that the pain is very manageable. Denies any chest pain, SOB, or vomiting. ] Objective: [General: A&O x 3, NAD MSK, LLE: Dressing is c/d/i. +df/pf. Sensation intact to light touch. 2+ DP pulse] Vital Signs Temp 97.4 F 10/08/17 09:26 Pulse 92 10/08/17 09:26 Resp 16 10/08/17 11:45 BP 104/55 10/08/17 09:26 Pulse Ox 100 10/08/17 09:26 Intake & Output 10/07/17 10/08/17 10/08/17 18:59 06:59 18:59 Intake Total 2740 2726 Output Total 350 1325 Balance 2390 1401 Weight 202 lb Intake: IV Fluids 2300 962 LR 2300 962 IVPB 54 ABX - CLINDAMYCIN 54 Oral 440 1710 Output: Urine 0 Akers 350 1325 Assessment: [POD 1: LTHA ] Plan: [Continue with PT/OT Continue with current pain medication Lovenox, warfarin 8mg tonight. ]
--- NOTE | 2017-10-08 16:52 | PN ---
Subjective Date of Service: 10/08/17 Interval History: Mr. Barahona reports feeling well today and offers no complaints. His pain is well controlled. He reports feeling somewhat constipated, though states this is typical for him and he is aware that laxatives are available PRN. Family History: Unchanged from Admission Social History: Unchanged from Admission Past Medical History: Unchanged from Admission Objective Active Medications: Acetaminophen (Tylenol Tab*) 650 mg PO Q8H CODEY Atorvastatin Calcium (Lipitor*) 10 mg PO QPM CODEY Bisacodyl (Dulcolax Supp*) 10 mg CO DAILY PRN Bupropion HCl (Wellbutrin Sr Tab*) 150 mg PO QAM CODEY Cyclobenzaprine HCl (Flexeril Tab*) 5 mg PO TID PRN Diphenhydramine HCl (Benadryl Iv*) 25 mg IV Q6H PRN Docusate Sodium (Colace Cap*) 100 mg PO BID CODEY Duloxetine HCl (Cymbalta Cap*) 60 mg PO BID CODEY Enoxaparin Sodium (Lovenox(*)) 30 mg SUBCUT Q24H CODEY Lactated Ringer's (Lactated Ringers 1000 Ml Bag*) 1,000 mls @ 125 mls/hr IV PER RATE CODEY Lactulose (Lactulose*) 30 ml PO Q6H PRN Lisinopril (Prinivil Tab*) 10 mg PO QPM CODEY Magnesium Hydroxide (Milk Of Magnesia Liq*) 30 ml PO BID CODEY Magnesium Hydroxide (Milk Of Magnesia Liq*) 30 ml PO Q6H PRN Morphine Sulfate (Morphine Inj ((Syringe))*) 4 mg IV Q2H PRN Multivitamins (Theragran Tab*) 1 tab PO DAILY CODEY Ondansetron HCl (Zofran Inj*) 4 mg IV Q6H PRN Oxycodone HCl (Roxycodone Tab*) 10 mg PO Q4H PRN Oxycodone/Acetaminophen (Percocet 5/325 Tab*) 1 tab PO Q4H PRN Oxycodone/Acetaminophen (Percocet 5/325 Tab*) 2 tab PO Q4H PRN Tamsulosin HCl (Flomax Cap*) 0.4 mg PO QAM CODEY Warfarin Sodium (Coumadin Tab(*)) 8 mg PO DAILY@1700 CODEY; Protocol Vital Signs - 8 hr 08/10/08/17 10/08/17 09:26 09:45 11:45 Temperature 97.4 F Pulse Rate 92 Respiratory 16 18 16 Rate Blood Pressure 104/55 (mmHg) O2 Sat by Pulse 100 Oximetry 10/08/17 10/08/17 10/08/17 12:45 14:34 15:21 Temperature 97.6 F 98.1 F Pulse Rate 105 77 Respiratory 16 18 20 Rate Blood Pressure 114/47 117/63 (mmHg) O2 Sat by Pulse 100 94 Oximetry 10/08/17 16:46 Temperature Pulse Rate Respiratory Rate Blood Pressure (mmHg) O2 Sat by Pulse 94 Oximetry Oxygen Devices in Use Now: None Eyes: No Scleral Icterus, PERRLA Ears/Nose/Mouth/Throat: Mucous Membranes Moist Neck: NL Appearance and Movements; NL JVP, Trachea Midline Respiratory: Symmetrical Chest Expansion and Respiratory Effort, Clear to Auscultation Cardiovascular: NL Sounds; No Murmurs; No JVD, RRR, No Edema Abdominal: NL Sounds; No Tenderness; No Distention Lymphatic: No Cervical Adenopathy Extremities: No Edema Skin: No Rash or Ulcers Neurological: Alert and Oriented x 3 Lines/Tubes/Other Access: Clean, Dry and Intact Peripheral IV Result Diagrams: 10/08/17 05:20 10/08/17 05:20 Assess/Plan/Problems-Billing Assessment: 62 yo male with PMH of HTN, HLD, schizoaffective disorder, anxiety, depression, and BPH who underwent an elective left total hip replacement, now post-op day 1. Hospital Medicine consulting for co-medical management. - Patient Problems (1) Status post total replacement of left hip Current Visit: Yes Status: Acute Priority: High Code(s): Z96.642 - PRESENCE OF LEFT ARTIFICIAL HIP JOINT SNOMED Code(s): 081310491595 Comment: - Post-op day 1 - Management per Ortho (2) HTN (hypertension) Current Visit: Yes Status: Chronic Priority: High Code(s): I10 - ESSENTIAL (PRIMARY) HYPERTENSION SNOMED Code(s): 28782578 Comment: - Well controlled - Continue lisinopril (3) HLD (hyperlipidemia) Current Visit: Yes Status: Chronic Priority: High Code(s): E78.5 - HYPERLIPIDEMIA, UNSPECIFIED SNOMED Code(s): 62985326 Comment: - Continue atorvastatin (4) Schizoaffective disorder Current Visit: Yes Status: Chronic Priority: High Code(s): F25.9 - SCHIZOAFFECTIVE DISORDER, UNSPECIFIED SNOMED Code(s): 61466456 Comment: - Continue bupropion and cymbalta (5) Depression Current Visit: Yes Status: Chronic Priority: High Code(s): F32.9 - MAJOR DEPRESSIVE DISORDER, SINGLE EPISODE, UNSPECIFIED SNOMED Code(s): 81715287 Comment: - As above (6) Anxiety Current Visit: Yes Status: Chronic Priority: High Code(s): F41.9 - ANXIETY DISORDER, UNSPECIFIED SNOMED Code(s): 94013768 Comment: - As above (7) BPH (benign prostatic hyperplasia) Current Visit: Yes Status: Chronic Priority: High Code(s): N40.0 - BENIGN PROSTATIC HYPERPLASIA WITHOUT LOWER URINRY TRACT SYMP SNOMED Code(s): 656290322 Comment: - Continue tamsulosin (8) DVT prophylaxis Current Visit: Yes Status: Acute Priority: High Code(s): CQC9297 - SNOMED Code(s): 844196076 Comment: - Lovenox bridging to Coumadin per Ortho (9) Full code status Current Visit: Yes Status: Chronic Priority: High Code(s): Z78.9 - OTHER SPECIFIED HEALTH STATUS SNOMED Code(s): 974667043 Status and Disposition: Dispo per Ortho. Medical comorbidities well controlled at this time. Will continue to follow distantly. Call with questions.
[2017-10-08] MEDS ORDERED: Warfarin TAB(*) 4 MG PO SCH (17:00)
[2017-10-08] MEDS: Atorvastatin* 10 MG TAB PO SCH (17:55)
[2017-10-08] MEDS: Lisinopril TAB* 10 MG PO SCH (17:56)
--- NOTE | 2017-10-08 18:41 | OP ---
OPERATIVE NOTE: DATE OF OPERATION: 10/07/17 DATE OF : 57 ATTENDING SURGEON: Jemima Agee MD MANAGER PRINT: MURIEL Villatoro Mr. Magallanes did help throughout the procedure with preparation of the leg, wound retraction, manipulat ion of the hip and wound closure. ANESTHESIOLOGIST: Dr. Marc ANESTHESIA: Spinal. PRE-OP DIAGNOSIS: Severe end-stage degenerative osteoarthritis of the left hip joint. POST-OP DIAGNOSIS: Severe end-stage degenerative osteoarthritis of the left hip joint. OPERATIVE PROCEDURE: Left total hip arthroplasty. COMPLICATIONS: None. SPECIMEN: Femoral head and acetabular reaming sent to Pathology. ESTIMATED BLOOD LOSS: 300 cc. HARDWARE USED: This is uncemented [place] total hip arthroplasty hardware. For the cup, a 54 E meño nium cluster hole shell. For the stem, an Accolade TMZF size 3 with 127-degree neck. For the head, a Biolox delta ceramic 28-2.7 V40 femoral head. For the liner, an MDM . For the polyethylene, a mormon MDM 42E/28 insert. BRIEF HISTORY/INDICATION: Mr. Barahona is a 62-year-old gentleman with years of increasingly severe le ft hip pain. He failed conservative treatment with antiinflammatories, pain medication, and physical therapy. There is a continued pain and decreased quality of life. He elected to have left total hi p arthroplasty. Radiograph showed [id number] arthritis. Informed consent was obtained from the pa tient. He understood the risks of surgery included, but were not limited to bleeding, infection, dam age to nearby structures, continued pain, need for further surgery, intraoperative fracture, nerve pa lsy, hardware failure, or loosening, dislocation, leg-length discrepancy, stroke, heart attack, blood clot, and . He wished to proceed. INTRAOPERATIVE FINDINGS: Intraoperatively, the patient was noted to have severe end-stage arthritis with complete loss of cartilage along the acetabulum and femoral head neck. DESCRIPTION OF PROCEDURE: Mr. Barahona was identified in the preanesthesia unit. His left lower extrem ity was marked as the correct operative side. Informed consent was signed and placed in the chart. The patient was taken to the operating room and placed under spinal anesthesia. A Akers catheter was placed. He was placed in the right lateral decubitus position on the pegboard. All bony prominence s were well padded. Left lower extremity was prepped and draped in the usual sterile fashion. Preop time-out was made to correctly identify the patient's side and site. Appropriate perioperative anti biotics were given within 1 hour of incision. A standard posterior hip incision was made with the 10 blade and carried down to the lateral fascial layer. The lateral fascial layer was incised in line with the 10 blade. The Charnley retractor was placed. The piriformis and conjoint tendons were identified and elevated off the posterolateral femu r using electrocautery. These were tagged with #5 Ethibond. Next, electrocautery was used to make a standard posterolateral capsular flap. This was tagged with #5 Ethibond. The hip was dislocated and lesser troch to center of the femoral head measured at 55 mm. Oscillating saw was used to make a fem oral neck cut and the femoral head was removed. The femur was retracted anteriorly. After appropria te placement of retractors, the acetabulum was well visualized. A long-handled knife was used to sha rply remove any remaining labrum from the acetabular rim. The acetabulum was sequentially reamed up to a size 53. A 53 reamer obtained a bleeding subchondral bone bed. A 53 trial had excellent fit. Final implant chosen was a Tritanium 54E cluster hole shell . This was impacted into the acetabulum without difficulty. The cup was stable. There was appropri ate anteversion and abduction angle. An MDM cementless liner 42E was inserted and this was impacted into the acetabulum. Next, attention was turned to preparation of the proximal femur. Femoral canal was opened using a ca nal finder. The femoral canal was sequentially broached up to a size 3. A 3 had excellent fit and a ppropriate anteversion. A 127 neck trial with a 28 +0 head and the appropriate MDM liner insert tria l was chosen. Lesser troch to center of the femoral head measured 58 mm, therefore a -2.7 head was p laced. Lesser troch to center of the femoral head measured 55 mm. The hip was reduced and taken thro ugh the range of motion. The hip was stable in all positions. There was good soft tissue tension an d appropriate leg lengths. The hip was carefully dislocated. All trials were removed. Final implant chosen was an Accolade TMZF size 3 with 127-degree neck. The MDM head and liner were p repared separately. This is a 28-2.7 ceramic Biolox delta V40 femoral head with a 28/48/42E restorat ion MDM liner insert. This was impacted onto the femoral neck. The hip was reduced and taken throug h a range of motion. The hip was stable in all positions. The wound was copiously irrigated with st erile saline. Previously tagged tendons were reapproximated to the posterolateral femur. The lateral fascial layer was closed using interrupted #1 Vicryl. The rest of the incision was closed in a layered fashion using 0 and 2-0 Vicryl. Skin was closed using running 3-0 Monocryl and Dermabo nd. Sterile Adaptic, 4x4s, and paper tape were used to cover the incision. The patient's anesthesia was reversed without difficulty. He was taken to the PACU in stable condition. Intended weightbear ing will be weightbearing as tolerated. Intended DVT prophylaxis will be Coumadin with a Lovenox francis dge. [id number]/[facility] #: [id number]
[2017-10-09] MEDS: oxyCODONE/Acetamin 5/325 MG* TAB PO PRN ×2 (05:17→10:33)
[2017-10-09 06:00] LABS: Hematocrit 32 % (42-52); Hemoglobin 10.9 g/dl (14.0-18.0); Mean Platelet Volume 7.6 um3 (7.4-10.4); Platelet Count 152 10^3/ul (150-450)
[2017-10-09 06:08] LABS: INR 1.34 (0.77-1.02)
[2017-10-09] MEDS: Acetaminophen TAB* 325 MG PO SCH (06:49)
[2017-10-09] MEDS: buPROPion SR TAB.SR* 150 MG PO SCH (08:24)
[2017-10-09] MEDS: Magnesium Hydroxide LIQ* 30 ML UDC PO SCH (08:24)
[2017-10-09] MEDS: Vitamin THERAPEUTIC TAB PO SCH (08:24)
[2017-10-09] MEDS: Docusate CAP* 100 MG PO SCH (08:24)
[2017-10-09] MEDS: DULoxetine DR CAP* 60 MG CAP.DR PO SCH (08:24)
[2017-10-09] MEDS: Tamsulosin CAP* 0.4 MG PO SCH (08:24)
--- NOTE | 2017-10-09 09:52 | PN ---
Progress Note - Progress Note Date of Service: 10/09/17 SOAP: Subjective: [Pt reports doing well. L hip pain managed with po meds. Feels ready to go home.] Objective: [A and O x 3, NAD. Afebrile L hip dressing changed. Surgical wound benign. No drainage or erythema. Distal gross motor and NV function intact. Caves soft, NT Vital Signs: Temp Pulse Resp BP Pulse Ox 97.6 F 83 18 118/57 96 10/09/17 07:03 10/09/17 07:03 10/09/17 07:30 10/09/17 07:03 10/09/17 07:30 Laboratory Results - last 24 hr 10/09/17 10/09/17 05:41 05:41 Hgb 10.9 L Hct 32 L Plt Count 152 MPV 7.6 INR (Anticoag Therapy) 1.34 H ] Assessment: [s/p L EPIFANIO POD #2] Plan: [PT today Oxycodone for pain Coumadin for DVT prophylaxis -- 8 mg today, 8 mg tomorrow D/C home with services F/U with Dr. Agee in 2 weeks]
[2017-10-09 12:33] VITALS: BP 107/59
[2017-10-09] MEDS: Enoxaparin(*) 30 MG/0.3 ML SYR SUBCUT SCH (12:33)
== END 2017-10-09 13:30 | disposition home or self-care (01) | DRG 470 ==
LOC: AA 08:13 → SSU 14:24
PROVIDERS: ADMIT Orthopaedic Surgery Adult Reconstructive Orthopaedic Surgery; ATTEND Internal Medicine
PROC: 0SRB04A Replacement of Left Hip Joint with Ceramic on Polyethylene Synthetic Substitute, Uncemented, Open Approach (ICD-10-PCS; principal; 2017-10-07 11:00)
DX: M16.12 Unilateral primary osteoarthritis, left hip (principal); F33.9 Major depressive disorder, recurrent, unspecified; I10 Essential (primary) hypertension; E78.00 Pure hypercholesterolemia, unspecified; F41.9 Anxiety disorder, unspecified; F25.9 Schizoaffective disorder, unspecified; N40.0 Benign prostatic hyperplasia without lower urinary tract symptoms; H50.9 Unspecified strabismus; G43.909 Migraine, unspecified, not intractable, without status migrainosus; Z79.82 Long term (current) use of aspirin; Z79.899 Other long term (current) drug therapy; Z88.1 Allergy status to other antibiotic agents; Z88.0 Allergy status to penicillin; Z88.8 Allergy status to other drugs, medicaments and biological substances; Z83.3 Family history of diabetes mellitus; Z82.49 Family history of ischemic heart disease and other diseases of the circulatory system; Z82.3 Family history of stroke; Z80.9 Family history of malignant neoplasm, unspecified
CPT/HCPCS: 36415; 72170; 80048; 85014; 85018; 85049; 85610; A9270-GY; G8978-GP-CL; G8979-GP-CJ; J1100; J1650; J2795; J3010

== ENCOUNTER 2017-11-24 08:06 | Emergency (ER) | payer MEDICARE ==
--- OUTSIDE RECORDS SUMMARY | 2017-11-24 08:19 | XMS REPORT ---
:1955 External Reference #:[id number] Author Organization [facility] Address [address] [place] [address] [place] [address] Phone [phone] Care Team Providers Name Role Phone Milagros Hussein MD Primary Care Physician Unavailable Payers Type Date Identification Numbers Payment Provider Subscriber Commercial Policy Number: [id number] [employer] [employer] pr Imelda Garces PayID: [id number] [address] [address] Attn: [place] [address] Commercial Expires: 2017 Policy Number: [employer] Of Imelda Garces [id number] [place] PayID: [id number] [address] [address] [place] [address] Problems Date Description Provider Status Onset: 09/10/2017 Localized, 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 Active Family History Date Family Member(s) Problem(s) [...] Form Strength Qnty SIG Indications Ordering Provider Cyclobenzaprine 11/08/ Active Tablets 10mg 30tabs 1 tablet Z47.1 Jemima HCL 2017 by mouth Anuel, q8 hours M.D. as needed muscle spasms Tramadol HCL 09/10/ Active Tablets 50mg 60tabs 1 tab Jemima 2018 every 6 Anuel, hours as M.D. needed for pain BP Pill / Active Unknown 0000 Anxiety Pill / Active Unknown 0000 Vitamin D / Active Unknown 0000 Bupropion HCL ER / Active Tablets 150mg Take One Unknown (SR) 0000 ER 12HR Tablet By Mouth Every Day Duloxetine HCL / Active Caps DR 60mg Unknown 0000 Part Lisinopril / Active Tablets 10mg Veloz, 0000 Armin Carmen RPA Diazepam / Active Tablets 10mg Take 1 Unknown 0000 Tablet By Mouth 1 Hour Before Injection Or Procedure Max Day 1 Simvastatin / Active Tablets 20mg Take One Unknown 0000 Tablet By Mouth AT Bedtime Percocet 10/09/ Hx Tablets 5-325mg 90tabs 1 -2 tabs Jemima 2018 - by mouth Anuel, 10/20/ every 4-6 M.D. 2018 hours as needed pain Warfarin Sodium 10/09/ Hx Tablets 2mg 40tabs take 1-4 Jemima 2017 - tablets by Aneul, 11/07/ mouth as M.D. 2018 directed Aspirin 81 Low / Hx 1 by mouth Unknown Dose 0000 - every day 2017 Vital Signs Date Vital Result Comment 11/22/2017 Height 67 inches 5'7" Weight 203.00 lb BP Systolic 130 mmHg BP Diastolic 90 mmHg Respiratory Rate 18 /min Body Temperature 98.0 F Pain Level 2 BMI (Body Mass Index) 31.8 kg/m2 11/08/2017 Height 67 inches 5'7" Weight 203.00 lb BP Systolic 120 mmHg BP Diastolic 74 mmHg Body Temperature 98.8 F BMI (Body Mass Index) 31.8 kg/m2 10/20/2017 Height 67 inches 5'7" Heart Rate 88 /min BP Systolic Sitting 90 mmHg BP Diastolic Sitting 68 mmHg Respiratory Rate 16 /min Body Temperature 98.0 F Pain Level 4 09/27/2017 Height 67 inches 5'7" Weight 202.00 lb BP Systolic 111 mmHg BP Diastolic 69 mmHg Respiratory Rate 16 /min Pain Level 7 BMI (Body Mass Index) 31.6 kg/m2 09/10/2017 Height 67 inches 5'7" Weight 203.00 lb Heart Rate 100 /min BP Systolic 120 mmHg BP Diastolic 74 mmHg BMI (Body Mass Index) 31.8 kg/m2 Results Test Date Test Result H/L Range Note Inr/Protime 10/28/2017 Inr 1.98 High 0.77-1.02 1 Inr/Protime 10/25/2017 Inr 1.56 High 0.77-1.02 Inr/Protime 10/21/2017 Inr 1.29 High 0.77-1.02 2 Inr/Protime 10/19/2017 Inr 2.29 High 0.77-1.02 3 Inr/Protime 10/14/2017 Inr 1.64 High 0.77-1.02 3 Inr/Protime 10/12/2017 Inr 1.35 High 0.77-1.02 4 Urine Culture And 09/28/2017 Urine Culture SEE RESULT BELOW 5 Sensitivities Comp Metabolic Panel 09/28/2017 Sodium 138 mmol/L 135-145 Potassium 4.4 mmol/L 3.5-5.0 Chloride 102 mmol/L 101-111 Co2 Carbon Dioxide 28 mmol/L 22-32 Anion Gap 8 mmol/L 2-11 Glucose 125 mg/dL High 70-100 Blood Urea Nitrogen 13 mg/dL 6-24 Creatinine 0.82 mg/dL 0.67-1.17 BUN/Creatinine Ratio 15.9 8-20 Calcium 8.9 mg/dL 8.6-10.3 Total Protein 6.2 g/dL Low 6.4-8.9 Albumin 3.9 g/dL 3.2-5.2 Globulin 2.3 g/dL 2-4 Albumin/Globulin Ratio 1.7 1-3 Total Bilirubin 0.50 mg/dL 0.2-1.0 Alkaline Phosphatase 83 U/L 34-104 Alt 15 U/L 7-52 Ast 18 U/L 13-39 Egfr Non- 95.5 >60 Egfr 115.6 >60 6 Type & Screen 09/28/2017 Patient Blood Type A Positive Antibody Screen NEGATIVE CBC Auto Diff 09/28/2017 White Blood Count 6.4 10^3/uL 3.5-10.8 Red Blood Count 4.85 10^6/uL 4.00-5.40 Hemoglobin 14.0 g/dL 14.0-18.0 Hematocrit 41 % Low 42-52 Mean Corpuscular Volume 85 fL 80-94 Mean Corpuscular Hemoglobin 29 pg 27-31 Mean Corpuscular HGB Conc 34 g/dL 31-36 Red Cell Distribution Width 13 % 10.5-15 Platelet Count 206 10^3/uL 150-450 Mean Platelet Volume 7.7 um3 7.4-10.4 Abs Neutrophils 4.2 10^3/uL 1.5-7.7 Abs Lymphocytes 1.6 10^3/uL 1.0-4.8 Abs Monocytes 0.4 10^3/uL 0-0.8 Abs Eosinophils 0.3 10^3/uL 0-0.6 Abs Basophils 0 10^3/uL 0-0.2 Abs Nucleated RBC 0 10^3/uL Granulocyte % 65.6 % 38-83 Lymphocyte % 24.3 % Low 25-47 Monocyte % 5.5 % 0-7 Eosinophil % 3.9 % 0-6 Basophil % 0.7 % 0-2 Nucleated Red Blood Cells % 0 Laboratory test finding 09/28/2017 Partial Thrombo Time 32.7 seconds 26.0 -36.3 PTT Inr/Protime 09/28/2017 Inr 0.93 0.77-1.02 Urinalysis Profile 09/28/2017 Urine Color Lauryn Urine Appearance Cloudy Urine Specific [place] 1.023 1.010-1.030 Urine pH 7.0 5-9 Urine Urobilinogen Positive Negative Urine Ketones Negative Negative Urine Protein Negative Negative Urine Leukocytes Negative Negative Urine Blood Negative Negative * * Negative 7 Urine Nitrite Negative Negative Urine Bilirubin Negative Negative Urine Glucose Negative Negative 1 PLEASE CALL STAT RESULTS TO [phone] 2 CALL TO [phone] 3 PLEASE CALL RESULTS TO [id number] PLEASE FAX RESULTS TO [phone] 4 CALL RESULTS MN [phone] FAX RESULTS TO [id number] 5 SEE RESULT BELOW Name: IMELDA GARCES : [address]: Jemima Agee MD Acct: [id number] Unit: [id number] AGE: 62 Location: PAT Re09/28/17 SEX: M Status: REG REF SPEC: [id number] SUZANNE: 09/28/17-1500 [facility] DR: Jemima Agee MD REQ: [id number] RECD: 09/28/17-1523 STATUS: COMP _ SOURCE: URINE SPDESC: ORDERED: Urine Culture QUERIES: Urine Source: Clean Catch Procedure Result Reported Site Urine Culture Final 09/29/17- 1355 ML No Growth (<1,000 CFU/mL) * ML - Main Lab . END OF REPORT DEPARTMENT OF PATHOLOGY, [address] [place] [id number] Faustino Cook M.D. Director [facility] # [id number] 6 Because ethnic data is not always readily available, this report includes an eGFR for both -Americans and non- Americans. The National Kidney Disease Education Program (NKDEP) does not endorse the use of the MDRD equation for patients that are not between the ages of 18 and 70, are , have extremes of body size, muscle mass, or nutritional status, or are non- or non-. According to the National Kidney Foundation, irrespective of diagnosis, the stage of the disease is based on the level of kidney function: Stage Description GFR(mL/min/1.73 m(2)) 1 Kidney damage with normal or decreased GFR 90 2 Kidney damage with mild decrease in GFR 60-89 3 Moderate decrease in GFR 30-59 4 Severe decrease in GFR 15-29 5 Kidney failure <15 (or dialysis) 7 *Ascorbic acid is present which may interfere with detection of blood. Procedures Date CPT Code Description Status 10/07/2017 72267 THR Total Hip Replacement Completed 10/07/2017 81707 THR Total Hip Replacement Completed Encounters Type Date Location Provider CPT E/M Dx [facility] [place] [address] Z96.642 10:37a Yas Britton I10 E78.5 N40.0 Office Visit 10/07/2017 10:[facility]a [facility] Freeman [address] I10 [facility]ists E78.5 N40.0 Z96.642 Z47.1 Office Visit 09/10/2017 8:30a [facility] M.D. 08585 M25.551 CConcettaMSamantha M25.552 M16.11 M16.12 Plan of Care Future Appointment(s):01/03/2018 1:45 pm - Jemima Agee M.D. at [facility]/2017 - Jemima Agee M.D.Z47.1 Aftercare following joint replacement surgeryFollow up:Follow up: 6 cpafpV04.642 Presence of left artificial hip hkroqX85.552 Pain in left hip
--- OUTSIDE RECORDS SUMMARY | 2017-11-24 08:19 | XMS REPORT ---
:1955 External Reference #:[id number] Author Organization [facility] 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 Active the pelvic region and thigh Onset: 09/06/2017 Trochanteric bursitis Milagros Hussein MD Active Onset: 09/06/2017 Osteoarthritis of hip, unspecified Milagros Hussein MD Active Onset: 11/10/2017 Prosthetic arthroplasty of the hip Milagros Hussein MD Active Onset: 11/10/2017 Syncope and collapse Milagros Hussein MD Active Family History Date [...] Strength Qnty SIG Indications Ordering Provider Cyclobenzaprine 11/10/ Active Tablets 10mg 30tab 1 by mouth MIYA Hussein 2018 s once a day MD Milagros as needed muscle spasms ortho Anuel Aspir-81 07/05/ Active Tablets DR 81mg 1 by mouth Keenan, 2018 every day MD Milagros Multivitamin 07/05/ Active Tablets 30tab 1 by mouth Keenan Adult 2018 s every day MD Milagros Vitamin D-3 07/05/ Active Capsules 1000Unit 100ca 1 by mouth Keenan 2017 ps every day MD Milagros Amitriptyline HCL / Active Tablets 50mg Take One Unknown 0000 Tablet By Mouth AT Bedtime Bupropion HCL ER / Active Tablets ER 150mg Take One Unknown (SR) 0000 12HR Tablet By Mouth Every Day Tamsulosin HCL / Active Capsules 0.4mg Take One Unknown 0000 Capsule By Mouth Every Day Simvastatin / Active Tablets 20mg Take One Unknown 0000 Tablet By Mouth AT Bedtime Duloxetine HCL / Active Caps DR 60mg 1 by mouth Unknown 0000 Part twice a day Diazepam 09/06/ Hx Tablets 10mg 3tabs take one F40.231 2017 - tablet by MD Milagros 1 hr 2017 before injection or procedure Reference #: [id number] F25.1 Diclofenac 08/28/2017 - Hx Gel 1% 100gm 2 g topica [place], Sodium 09/30/2017 right hip 4 Tobi Stuart times a day Diclofenac 08/16/2017 - Hx Cream 3% 5000gm apply 4g to M16. [place], Sodium 08/28/2017 left hip 4 12 Tobi Stuart times daily Lorazepam 07/05/2017 - Hx Tablets 2mg 10tabs 1 Tab 30 Keenan, 09/06/2017 Min Before MD Milagros Injection; May Repeat After 1 HR If Needed Celecoxib 07/05/2017 - Hx Capsules 200mg 14caps take one M25. Keenan, 09/30/2017 capsule by 552 MD Milagros mouth every day with food or snack Seroquel - Hx Tablets 100mg 1 PO QHS Unknown 09/30/2017 Duloxetine HCL - Hx Caps DR Part 30mg 1 PO qd Unknown 09/30/2017 Lisinopril - Hx Tablets 10mg take /2 Keenan, 11/10/2017 tablet by MD Milagros mouth every day Vital Signs Date Vital Result Comment 11/10/2017 BP Systolic Sitting Left Arm 106 mmHg BP Diastolic Sitting Left Arm 64 mmHg Body Temperature 99.2 F Heart Rate 76 /min Height 67 inches 5'7" Weight 200.00 lb BMI (Body Mass Index) 31.3 kg/m2 BSA (Body Surface Area) 2.02 m2 Wilmore body weight in kilograms 67 09/30/2017 BP Systolic Sitting Left Arm 126 mmHg BP Diastolic Sitting Left Arm 72 mmHg Heart Rate 80 /min Respiratory Rate 18 /min Height 67 inches 5'7" Weight 205.00 lb BMI (Body Mass Index) 32.1 kg/m2 BSA (Body Surface Area) 2.04 m2 Wilmore body weight in kilograms 67 09/06/2017 BP Systolic 134 mmHg BP Diastolic 82 mmHg Body Temperature 97.0 F Heart Rate 88 /min Respiratory Rate 20 /min Height 67 inches 5'7" Weight 202.00 lb BMI (Body Mass Index) 31.6 kg/m2 BSA (Body Surface Area) 2.03 m2 Wilmore body weight in kilograms 67 O2 % BldC Oximetry 97 % 08/16/2017 BP Systolic Sitting Left Arm 113 mmHg BP Diastolic Sitting Left Arm 71 mmHg Body Temperature 98.4 F Heart Rate 86 /min Respiratory Rate 18 /min Height 67 inches 5'7" Weight 199.00 lb BMI (Body Mass Index) 31.2 kg/m2 BSA (Body Surface Area) 2.02 m2 Wilmore body weight in kilograms 67 O2 % BldC Oximetry 97 % 07/29/2017 BP Systolic Sitting Left Arm 118 mmHg BP Diastolic Sitting Left Arm 64 mmHg Body Temperature 97.6 F Heart Rate 86 /min Respiratory Rate 17 /min Height 67 inches 5'7" Weight 199.00 lb BMI (Body Mass Index) 31.2 kg/m2 BSA (Body Surface Area) 2.02 m2 Wilmore body weight in kilograms 67 07/05/2017 BP Systolic 112 mmHg BP Diastolic 68 mmHg Body Temperature 97.6 F Heart Rate 77 /min Respiratory Rate 17 /min Height 67 inches 5'7" Weight 198.00 lb BMI (Body Mass Index) 31.0 kg/m2 BSA (Body Surface Area) 2.01 m2 Wil[place] body weight in kilograms 67 O2 % BldC Oximetry 96 % 01/06/2011 Height 67 inches [...] 4 Lymph % 22.0 % 20.0-42.0 4 Robertson % 5.6 % 0.0-10.0 4 Eo% 4.1 % 0.0-6.6 4 Bas% 0.5 % 0.0-1.1 4 Neut# 4.02 K/uL 1.8-7.0 4 Lymph # 1.30 K/uL 1.0-4.0 4 Robertson # 0.33 K/uL 0.0-0.8 4 Eos # [...] Procedures Date CPT Code Description Status 07/29/2017 00545 Radiologic Exam Hip Unilateral With Pelvis 2-3 Views Completed 03/08/2015 98826 Psychiatric Diag Eval W/Medical Service Completed 03/07/2015 91840 EKG Interpretation And Report Only Completed 02/19/2011 96970 EKG Interpretation And Report Only Completed Encounters Type Date Location Provider CPT E/M Dx Office Visit 09/30/2017 2:45p Family Medicine Robby Bhatti, 16114 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 00737 M16.12 Office Visit 07/29/2017 2:30p Orthopa[facility] Office Narciso Jacques M.D. 83661 M25.552 M16.12 Office Visit 07/05/2017 10:15a [facility] [place] [address] M25.552 H50.9 F25.1 F32.9 F40.231 Office Visit 03/08/2015 11:23a [facility] Jose Antonio Gilbert, 45048 F25.1 Medical Center M.D. Office Visit 02/06/2015 3:13p [facility] Jose Antonio Giblert, 45002 F32.9 Medical Center M.D. Office Visit 01/06/2011 11:10a Orthopaedic Office Jerry Funez, 14129 840.4 Plan of Care Future Appointment(s):01/07/2018 10:15 am - Milagros Hussein MD at [facility]11/10/2017 - Milagros Hussein MDI10 Essential (primary) hypertensionComments:may discontinue the lisinopril; continue tamsulosin because of urinary symptoms;check bp out of office and write downFollow up:6 mo : [id number] Syncope and collapseComments:This is classic Defecation Syncope. These are not seizure episodes.Avoid straining with bm's;read about it on the internet.We are stopping the lisinopril so bp won't drop so much.Z96.642 Presence of left artificial hip jointComments:Do daily exercises to help recover faster.AllNew Medication:Cyclobenzaprine HCL 10 mg
--- OUTSIDE RECORDS SUMMARY | 2017-11-24 08:19 | XMS REPORT ---
:1955 External Reference #:[id number] Author Organization [employer] Address [address] [place] [address] [place] [address] Phone [phone] Care Team Providers Name Role Phone Milagros Hussein MD Primary Care Physician Unavailable Payers Type Date Identification Numbers Payment Provider Subscriber Commercial Policy Number: [id number] [facility] Prog/Todays Options Imelda Garces PayID: [id number] [address] [address] Attn: [place] [address] Commercial Expires: 2017 Policy Number: Today's Option Of Imelda Garces [id number] [place] PayID: [id number] [address] [address] [place] [address] Problems Date Description Provider Status Onset: 09/10/2017 [...] Hx Tablets 2mg 40tabs take 1-4 Jemima 2018 - tablets by Anuel, 11/07/ mouth as M.D. 2018 directed Aspirin 81 Low / Hx 1 by mouth Unknown Dose 0000 - every day 2017 Vital Signs Date Vital Result Comment 11/08/2017 Height 67 inches 5'7" Weight 203.00 [...] Inr/Protime 10/12/2017 Inr 1.35 High 0.77-1.02 4 Urinalysis Profile 09/28/2017 Urine Color Lauryn Urine Appearance Cloudy Urine Specific [place] 1.023 1.010-1.030 Urine pH 7.0 5-9 Urine Urobilinogen Positive Negative Urine Ketones Negative Negative Urine Protein Negative Negative Urine Leukocytes Negative Negative Urine Blood Negative Negative * * Negative 5 Urine Nitrite Negative Negative Urine Bilirubin Negative Negative Urine Glucose Negative Negative Inr/Protime 09/28/2017 Inr 0.93 0.77-1.02 Laboratory test finding 09/28/2017 Partial Thrombo Time 32.7 seconds 26.0 -36.3 PTT CBC Auto Diff 09/28/2017 White Blood Count [...] 0-2 Nucleated Red Blood Cells % 0 Type & Screen 09/28/2017 Patient Blood Type A Positive Antibody Screen NEGATIVE Comp Metabolic Panel 09/28/2017 Sodium 138 mmol/L [...] Non- 95.5 >60 Egfr 115.6 >60 6 Urine Culture And Sensitivities 09/28/2017 Urine Culture SEE RESULT BELOW 7 1 PLEASE CALL STAT RESULTS TO [phone] 2 CALL TO [phone] 3 PLEASE CALL RESULTS TO [id number] PLEASE FAX RESULTS TO [phone] 4 CALL RESULTS TO [phone] FAX RESULTS TO [id number] 5 *Ascorbic acid is present which may interfere with detection of blood. 6 Because ethnic data is not always [...] 5 Kidney failure <15 (or dialysis) 7 SEE RESULT BELOW Name: IMELDA GARCES : [address]: Jemima Agee MD Acct: [id number] Unit: [id number] AGE: 62 Location: [facility] Re09/28/17 SEX: M Status: REG REF SPEC: [id number] SUZANNE: 09/28/17-1499 [facility] DR: Jemima Agee MD REQ: [id number] RECD: 09/28/17 STATUS: COMP _ SOURCE: URINE SPDESC: ORDERED: Urine Culture QUERIES: Urine Source: Clean Catch Procedure Result Reported Site Urine Culture Final 09/29/17- 1355 ML No Growth (<1,000 CFU/mL) * ML - Main Lab . END OF REPORT DEPARTMENT OF PATHOLOGY, [address] [place] [address] Faustino Cook M.D. Director [facility] # [id number] Procedures Date CPT Code Description Status 10/07/2017 20790 THR Total Hip Replacement Completed 10/07/2017 47949 THR Total Hip Replacement Completed Encounters Type Date Location Provider CPT E/M Dx Office Visit 10/08/2017 [facility], Donald Barry, 21778 Z96.642 10:37a Yas Britton I10 E78.5 N40.0 [facility] [address] I10 Hospitalists E78.5 N40.0 Z96.642 Z47.1 Office Visit 09/10/2017 8:30a [facility] Agee M.D. 91490 M25.551 C.M.AConcetta M25.552 M16.11 M16.12 Plan of Care Future Appointment(s):11/22/2017 1:45 pm - J[facility]ima [facility]e [facility].D. [facility]/08[facility]2017 - Jemima Agee M.D.Z47.1 Aftercare following joint replacement surgeryNew Medication:Cyclobenzaprine HCL 10 mgFollow up: Follow up: 2 kpcmnV85.642 Presence of left artificial hip joint
[2017-11-24 08:33] VITALS: BP 146/81
--- NOTE | 2017-11-24 10:20 | UC ---
Shoulder Pain HPI - HPI Summary HPI Summary: Patient states that he had hip surgery about 7 weeks ago. She states that over the past 4 weeks he's developed some "aching" to the fronts of both of his shoulders. He attributes that to pushing off when standing up. He denies any associated chest pain, shortness of breath or numbness or weakness to his arms or shoulders. He denies any history of acute injury to his shoulders and notes that the discomfort worsens with movement. He's been self treating with BenGay without relief. He denies any associated neck or back pain. He has is no associated swelling to either arm. - History of Current Complaint Chief Complaint: UCGeneralIllness Stated Complaint: BILATERAL SHOULDER PAIN Time Seen by Provider: 11/24/17 10:07 Hx Obtained From: Patient Onset/Duration: Gradual Onset Timing: Constant Pain Intensity: 3 Aggravating Factor(s): Movement Associated Signs And Symptoms: Negative: Swelling, Redness, Fever, Weakness, Numbness/Tingling - Allergies/Home Medications Allergies/Adverse Reactions: Allergies Allergy/AdvReac Type Severity Reaction Status Date / Time haloperidol [From Haldol] Allergy See Comment Verified 11/24/17 08:33 paroxetine [From Paxil] Allergy sleepiness Verified 11/24/17 08:33 Penicillins Allergy Difficulty Verified 11/24/17 08:33 Breathing sertraline [From Zoloft] Allergy sleepiness Verified 11/24/17 08:33 PMH/Surg Hx/FS Hx/Imm Hx - Additional Past Medical History Additional PMH: Hypertension, hyperlipidemia, bipolar, 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 - Surgical History Surgical History: Yes Surgery Procedure, Year, and Place: TONSILLECTOMY, L hip replacement - Family History Known Family History: Positive: Cardiac Disease, Hypertension - Social History Occupation: Disabled Alcohol Use: None Alcohol Amount: 1-2 per week Substance Use Type: None Smoking Status (MU): Never Smoked Tobacco Have You Smoked in the Last Year: No - Immunization History Most Recent Influenza Vaccination: 2016 Most Recent Pneumonia Vaccination: never Vaccination Up to Date: Yes Review of Systems Constitutional: Negative Skin: Negative Eyes: Negative ENT: Negative Respiratory: Negative Cardiovascular: Negative Gastrointestinal: Negative Genitourinary: Negative Motor: Negative Neurovascular: Negative Musculoskeletal: Other: - Bilateral shoulder pain Neurological: Negative Psychological: Negative Is Patient Immunocompromised?: No All Other Systems Reviewed And Are Negative: Yes Physical Exam Triage Information Reviewed: Yes Appearance: Well-Appearing Vital Signs: Initial Vital Signs Temp 98.3 F 11/24/17 08:27 Pulse 95 11/24/17 08:27 Resp 20 11/24/17 08:27 BP 146/81 11/24/17 08:27 Pulse Ox 100 11/24/17 08:27 Vital Signs Reviewed: Yes Eyes: Positive: Conjunctiva Clear, Other: - Lateral deviation a left eye consistent with a history of lazy eye ENT: Positive: Pharynx normal, TMs normal. Negative: Nasal congestion, Nasal drainage Neck: Positive: Supple, Nontender, No Lymphadenopathy, Other: - C-spine is nontender Respiratory: Positive: Lungs clear, Normal breath sounds, Other: - Chest is without gross deformity or swelling but patient is tender to palpation over his pectoral muscles with no crepitation or instability. Cardiovascular: Positive: RRR, No Murmur, Pulses Normal - Both upper extremities Abdomen Description: Positive: Nontender, No Organomegaly, Soft Bowel Sounds: Positive: Present Musculoskeletal: Positive: Other: - Cervicothoracic and lumbar spine is without gross deformity swelling or discoloration and is nontender to palpation. Inspection of both upper extremities shows symmetry as well as no gross deformity swelling discoloration or rash. Patient notes generalized tenderness palpation to both anterior shoulder girdles rest the shoulder is nontender. The rest of both upper extremities are nontender to palpation a strong's medical radial pulses. He is able to demonstrate full active range of motion to both shoulders as well as the rest of the upper extremities; however, he complains of pain to each anterior shoulder while doing so especially with abduction. He is able to resist on drop arm test to each side. Neurological: Positive: Alert Psychological: Positive: Age Appropriate Behavior Skin Exam: Normal Skin: Negative: rashes Shoulder Course/Dx - Course Course Of Treatment: Given there is no acute injury have no concern for fracture or dislocation and x-rays would not change current treatment thus none were obtained. Given the pattern of this discomfort to the anterior shoulder pectoral muscles think this is most consistent with muscle strain from pushing off to stand since his hip surgery. I'm going to treat him with a course of anti-inflammatory and refer him to physical therapy. - Differential Dx/Diagnosis Provider Diagnoses: Acute bilateral anterior shoulder pain. Bilateral pectoral muscle strain. Discharge - Sign-Out/Discharge Documenting (check all that apply): Patient Departure All imaging exams completed and their final reports reviewed: No Studies - Discharge Plan Condition: Stable Disposition: HOME Prescriptions: Naproxen [Naprosyn 500 mg tab] 500 mg PO BID 7 Days #14 tablet Patient Education Materials: Muscle Strain (ED), Shoulder Pain (ED) Referrals: Phuong Bhatti NP [Primary Care Provider] - 7 Days Additional Instructions: CALL PT TODAY FOR NEXT AVAILABLE APPOINTMENT. - Billing Disposition and Condition Condition: STABLE Disposition: Home
== END 2017-11-24 10:27 | disposition home or self-care (01) ==
LOC: UCCORT 08:06
DX: S29.011A Strain of muscle and tendon of front wall of thorax, initial encounter (principal); X50.0XXA Overexertion from strenuous movement or load, initial encounter; Y93.89 Activity, other specified; Y92.009 Unspecified place in unspecified non-institutional (private) residence as the place of occurrence of the external cause; Z88.0 Allergy status to penicillin; Z88.8 Allergy status to other drugs, medicaments and biological substances; M25.512 Pain in left shoulder; M25.511 Pain in right shoulder
CPT/HCPCS: 99212; G0463

== ENCOUNTER 2018-03-28 13:23 | Emergency (ER) | payer MEDICARE ==
--- OUTSIDE RECORDS SUMMARY | 2018-03-28 13:34 | XMS REPORT | Continuity of Care Document ---
:1955 External Reference #:[id number] Author Name Flavia Walden Care Team Providers Name Role Phone Milagros Hussein MD Primary Care Physician Unavailable Payers Type Date Identification Numbers Payment Provider Subscriber Policy Number: [id number] [employer] Imelda Garces PayID: [id number] [address] [address] Attn: [place] [address] Expires: 2017 Policy Number: [id number] [employer] [place] Imelda Garces PayID: [id number] [address] [address] [place] [address] Advance Directives Description No Information Available Problems Date Description Provider Status Onset: 09/10/2017 Localized, 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 Active Onset: 03/11/2018 Trochanteric bursitis Jemima Agee M.D. Active Family History Date Family Member(s) Problem(s) Comments General Diabetes General Heart Disease General Hypercholesterolemia General Stroke General Cancer Social History Type Date Description Comments Sex Unknown Lives With friend Occupation Disabled ETOH Use Occasionally consumes alcohol Tobacco Use Start: Unknown Patient has never smoked Smoking Status Reviewed: 03/11/18 Patient has never smoked Exercise Type/Frequency Exercises regularly Allergies, Adverse Reactions, Alerts Date Description Reaction Status Severity Comments 09/10/2017 Penicillin Active 09/27/2017 Zoloft Active 09/27/2017 Paxil Active 09/27/2017 Haldol Active Medications Medication Date Status Form Strength Qnty SIG Indications Ordering Provider Anxiety Pill / Active Unknown 0000 Vitamin D / Active Unknown 0000 Bupropion HCL ER 00/00/ Active Tablets 150mg Take One Unknown (SR) 0000 ER 12HR Tablet By Mouth Every Day Duloxetine HCL / Active Caps DR 60mg Unknown 0000 Part Diazepam / Active Tablets 10mg Take 1 Unknown 0000 Tablet By Mouth 1 Hour Before Injection Or Procedure Max Day 1 Simvastatin / Active Tablets 20mg Take One Unknown 0000 Tablet By Mouth AT Bedtime Aspirin Adult Low / Active Tablets 81mg 1 by mouth Unknown Dose 0000 DR every day Cyclobenzaprine 11/08/ Hx Tablets 10mg 30tabs 1 tablet Z47.1 Jemima HCL 2017 - by mouth Anuel, 03/10/ q8 hours M.D. 2019 as needed muscle spasms Percocet 10/09/ Hx Tablets 5-325mg 90tabs 1 -2 tabs Jemima 2017 - by mouth Nauel, 10/20/ every 4-6 M.D. 2018 hours as needed pain Warfarin Sodium 10/09/ Hx Tablets 2mg 40tabs take 1-4 Jemima 2017 - tablets by Anuel, 11/07/ mouth as M.D. 2018 directed Tramadol HCL 09/10/ Hx Tablets 50mg 60tabs 1 tab Jemima 2017 - every 6 Anuel, 01/02/ hours as M.D. 2017 needed for pain BP Pill / Hx Unknown 0000 - 2018 Aspirin 81 Low / Hx 1 by mouth Unknown Dose 0000 - every day 2017 Lisinopril / Hx Tablets 10mg Magdiel 0000 - Armin 03/10/ SHAWANDA Carmen 2019 Immunizations Description No Information Available Vital Signs Date Vital Result Comment 03/11/2018 8:44am Height 67 inches 5'7" Weight 216.00 lb BP Systolic 111 mmHg BP Diastolic 72 mmHg Respiratory Rate 16 /min Pain Level 2 BMI (Body Mass Index) 33.8 kg/m2 01/03/2018 2:11pm Height 67 inches 5'7" Heart Rate 96 /min BP Systolic 134 mmHg BP Diastolic 76 mmHg Body Temperature 98.6 F Pain Level 0 11/22/2017 1:58pm Height 67 inches 5'7" Weight 203.00 lb BP Systolic 130 mmHg BP Diastolic 90 mmHg Respiratory Rate 18 /min Body Temperature 98.0 F Pain Level 2 BMI (Body Mass Index) 31.8 kg/m2 11/08/2017 1:28pm Height 67 inches 5'7" Weight 203.00 lb BP Systolic 120 mmHg BP Diastolic 74 mmHg Body Temperature 98.8 F BMI (Body Mass Index) 31.8 kg/m2 10/20/2017 9:22am Height 67 inches 5'7" Heart Rate 88 /min BP Systolic Sitting 90 mmHg BP Diastolic Sitting 68 mmHg Respiratory Rate 16 /min Body Temperature 98.0 F Pain Level 4 09/27/2017 11:02am Height 67 inches 5'7" Weight 202.00 lb BP Systolic 111 mmHg BP Diastolic 69 mmHg Respiratory Rate 16 /min Pain Level 7 BMI (Body Mass Index) 31.6 kg/m2 09/10/2017 8:41am Height 67 inches 5'7" Weight 203.00 lb Heart Rate 100 /min BP Systolic 120 mmHg BP Diastolic 74 mmHg BMI (Body Mass Index) 31.8 kg/m2 Results Test Date Facility Test Result H/L Range Note Inr/Protime 10/28/2017 [facility] Inr 1.98 High 0.77-1.02 1 [place] [address] [phone] Inr/Protime 10/25/2017 [facility] Inr 1.56 High 0.77-1.02 [place] [address] [phone] Inr/Protime 10/21/2017 [facility] Inr 1.29 High 0.77-1.02 2 [place] [address] [phone] Inr/Protime 10/19/2017 [facility] Inr 2.29 High 0.77-1.02 3 [place] [address] [phone] Inr/Protime 10/14/2017 [facility] Inr 1.64 High 0.77-1.02 [place] [address] [phone] Inr/Protime 10/12/2017 [facility] Inr 1.35 High 0.77-1.02 4 [place] [address] [phone] Urinalysis Profile 09/28/2017 [facility] [place] [address] [phone] Urine Appearance Cloudy Urine Specific [place] 1.023 N 1.010-1.030 Urine pH 7.0 N 5-9 Urine Urobilinogen Positive Abnormal Negative Urine Ketones Negative Negative Urine Protein Negative Negative Urine Leukocytes Negative Negative Urine Blood Negative Negative * * Abnormal Negative 5 Urine Nitrite Negative Negative Urine Bilirubin Negative Negative Urine Glucose Negative Negative Inr/Protime 09/28/2017 [facility] Inr 0.93 N 0.77-1.[address] [place] [address] [phone] Laboratory test 09/28/2017 [facility] Partial 32.7 seconds N 26.0-36.[address] [place] [address] PTT [phone] CBC Auto Diff 09/28/2017 [facility] White Blood 6.4 10^3/uL N 3.5-10.[address] Count [place], [place] [id number] [phone] Red Blood Count 4.85 10^6/uL N 4.00-5.40 Hemoglobin 14.0 g/dL N 14.0-18.0 Hematocrit 41 % Low 42-52 Mean Corpuscular Volume 85 fL N 80-94 Mean Corpuscular Hemoglobin 29 pg N 27-31 Mean Corpuscular HGB Conc 34 g/dL N 31-36 Red Cell Distribution Width 13 % N 10.5-15 Platelet Count 206 10^3/uL N 150-450 Mean Platelet Volume 7.7 um3 N 7.4-10.4 Abs Neutrophils 4.2 10^3/uL N 1.5-7.7 Abs Lymphocytes 1.6 10^3/uL N 1.0-4.8 Abs Monocytes 0.4 10^3/uL N 0-0.8 Abs Eosinophils 0.3 10^3/uL N 0-0.6 Abs Basophils 0 10^3/uL N 0-0.2 Abs Nucleated RBC 0 10^3/uL Granulocyte % 65.6 % N 38-83 Lymphocyte % 24.3 % Low 25-47 Monocyte % 5.5 % N 0-7 Eosinophil % 3.9 % N 0-6 Basophil % 0.7 % N 0-2 Nucleated Red Blood Cells % 0 Type & Screen 09/28/2017 [facility] Patient Blood Type A Positive [address] [place] [address] [phone] Antibody Screen NEGATIVE Comp Metabolic Panel 09/28/2017 [facility] Sodium 138 mmol/L N 135-145 [address] [place] [address] [phone] Potassium 4.4 mmol/L N 3.5-5.0 Chloride 102 mmol/L N 101-111 Co2 Carbon Dioxide 28 mmol/L N 22-32 Anion Gap 8 mmol/L N 2-11 Glucose 125 mg/dL High 70-100 Blood Urea Nitrogen 13 mg/dL N 6-24 Creatinine 0.82 mg/dL N 0.67-1.17 BUN/Creatinine Ratio 15.9 N 8-20 Calcium 8.9 mg/dL N 8.6-10.3 Total Protein 6.2 g/dL Low 6.4-8.9 Albumin 3.9 g/dL N 3.2-5.2 Globulin 2.3 g/dL N 2-4 Albumin/Globulin Ratio 1.7 N 1-3 Total Bilirubin 0.50 mg/dL N 0.2-1.0 Alkaline Phosphatase 83 U/L N 34-104 Alt 15 U/L N 7-52 Ast 18 U/L N 13-39 Egfr Non- 95.5 >60 Egfr 115.6 >60 6 Urine Culture And 09/28/2017 [facility] Urine Culture SEE RESULT 7 Sensitivities [address] [place] [address] [phone] PLEASE CALL STAT RESULTS TO [phone] CALL TO [phone] PLEASE CALL RESULTS TO [id number] PLEASE FAX RESULTS TO [id number] [phone] CALL RESULTS TO [phone] FAX RESULTS TO [id number] [phone] *Ascorbic acid is present which may [...] [address]: Jemima Agee MD Acct: [id number] Unit: [id number] AGE: 62 Location: [facility] Re09/28/17 SEX: M Status: REG REF SPEC: [id number] SUZANNE: 09/28/17-1499 [facility] DR: Jemima Agee MD REQ: [id number] RECD: 09/28/17 STATUS: COMP _ SOURCE: URINE SPDESC: ORDERED: Urine Culture QUERIES: Urine Source: Clean Catch Procedure Result Reported Site Urine Culture Final 09/29/17- 1355 ML No Growth (<1,000 CFU/mL) * ML - Main Lab . END OF REPORT DEPARTMENT OF PATHOLOGY, [address] [place] [address] Faustino Cook M.D. Director [facility] # [id number] Procedures Date Code Description Status 10/07/2017 05264 THR Total Hip Replacement Completed 10/07/2017 98977 THR Total Hip Replacement Completed Encounters Type Date Location Provider Dx Diagnosis Office Visit 10/08/2017 [facility] Z96.642 Presence of left 10:37a gissell Robert M.D. artificial hip [facility] joint I10 Essential (primary) hypertension E78.5 Hyperlipidemia, unspecified N40.0 Benign prostatic hyperplasia without lower urinry tract symp Office Visit 10/07/2017 [facility] I10 Essential 10:36a gissell Robert PA (primary) Hospitalists hypertension E78.5 Hyperlipidemia, unspecified N40.0 Benign prostatic hyperplasia without lower urinry tract symp Z96.642 Presence of left artificial hip joint Z47.1 Aftercare following joint replacement surgery Office Visit 09/10/2017 8:30a [facility] Jemima Agee, M25.551 Pain in right Of C.M.A. M.D. hip M25.552 Pain in left hip M16.11 Unilateral primary osteoarthritis, right hip M16.12 Unilateral primary osteoarthritis, left hip Plan of Treatment Future Appointment(s):09/09/2018 8:30 am [facility] Jemima Agee M.D.Z96.642 Presence of left artificial hip jointFollow up:Follow up: 6 mthsM25.552 Pain in left hipM70.62 Trochanteric bursitis, left hip
--- OUTSIDE RECORDS SUMMARY | 2018-03-28 13:34 | XMS REPORT | Continuity of Care Document ---
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 Milagros Hussein MD Primary Care Physician Unavailable Payers Date Identification Numbers Payment Provider Subscriber Policy Number: [id number] [facility] Rajat Barahona PayID: [id number] [place] [id number] PayID: [id number] [facility] Rajat Barahona Psych/R[facility] [address] [place] [address] Advance Directives Description No Information Available Problems Date Description Provider Status Onset: 09/06/2017 [...] unspecified Milagros Hussein MD Active Onset: 11/10/2017 Syncope and collapse Milagros Hussein MD Active Onset: 11/10/2017 Prosthetic arthroplasty of the hip Milagros Hussein MD Active Family History Date Family Member(s) Observation Comments General Diabetes General Lung Cancer Father due to COPD () Father Depression Father Heart Disease Mother due to Cancer () Mother Anxiety Mother Chronic Obstructive Pulmonary Disease (COPD) Mother Lung Cancer Children 1 First Son Anxiety Siblings 1 First Sister Depression Social History Type Date Description Comments Sex Unknown Education Highest level in special ed, can't completed, 9th grade read well Lives With Girlfriend Anne Marie Mcghee Occupation Disabled psychiatric, schizophrenia in past Tobacco Use Start: Unknown Never Smoked Cigarettes Smoking Status Reviewed: 02/21/18 Never Smoked Cigarettes ETOH Use Rarely consumes alcohol Tobacco Use Start: Unknown Patient has never smoked Recreational Drug Use Never Used Drugs Allergies, Adverse Reactions, Alerts Date Description Reaction Status Severity Comments 01/06/2011 Penicillins Active Unsure of reaction 01/06/2011 Haldol Active Bad Twitch 07/05/2017 Zoloft Active 09/30/2017 Paxil Active Medications Medication Date Status Form Strength Qnty SIG Indications Ordering Provider Aspir-81 07/05/ Active Tablets DR 81mg 1 by mouth Keenan, 2018 every day MD Milagros Multivitamin 07/05/ Active Tablets 30tab 1 by mouth Keenan 2018 s every day MD Milagros Vitamin D-3 07/05/ Active Capsules 1000Unit 100ca 1 by mouth 2017 ps every day MD Milagros Amitriptyline HCL / Active Tablets 50mg Take One Unknown 0000 Tablet By Mouth AT Bedtime Bupropion HCL ER / Active Tablets ER 150mg Take One Unknown (SR) 0000 12HR Tablet By Mouth Every Day Tamsulosin HCL / Active Capsules 0.4mg 90cap take one Keenan, s capsule by MD Milagros mouth every day Simvastatin / Active Tablets 20mg 30tab take one Cano, [address] Noriega mouth at bedtime Duloxetine HCL / Active Caps DR 60mg 1 by mouth Unknown 0000 Part twice a day Prednisone 0000/ Active Tablets 10mg 1 pill by Unknown 0000 mouth daily Prednisone 01/26/ Hx Tablets 20mg 3tabs take 2 Jerome 2017 - tabs po CT Noriega 02/21/ daily for 2019 2 weeks, then 1.5 tabs po daily for 2 weeks, then 1 tab po daily for 4 weeks Prednisone 01/10/ Hx Tablets 10mg 30tab take 4 M79.621 Jerome 2017 - s pills by CT Noriega 01/26/ mouth for 2017 4 days, then 3 pills by mouth for 3 days, then 2 pills by mouth for 3 days Prednisone 12/08/ Hx Tablets 10mg 30tab Take 4 M79.621 Jerome 2017 - s pills by CT Noriega 01/10/ mouth for 2017 4 days, then 3 pills by mouth for 3 days, then 2 pills by mouth for 3 days Cyclobenzaprine 11/10/ Hx Tablets 10mg 30tab 1 by mouth MIYA Hussein 2017 - s once a day MD Milagros 02/21/ as needed 2019 muscle spasms ortho Anuel Diazepam 09/06/ Hx Tablets 10mg 3tabs take one F40.231 Keenan 2017 - tablet by MD Milagros 09/30/ mouth 1 hr 2018 before injection or procedure Reference #: [id number] F25.1 Diclofenac 08/28/2017 - Hx Gel 1% 100gm 2 g topica [place], Sodium 09/30/2017 right hip 4 Narciso, M.D. times a day Diclofenac 08/16/2017 - Hx Cream 3% 5000gm apply 4g to M16. [place], Sodium 08/28/2017 left hip 4 12 Narciso, M.D. times daily Lorazepam 07/05/2017 - Hx [...] 09/30/2017 Lisinopril - Hx Tablets 10mg take 1/2 Keenan, 11/10/2017 tablet by MD Milagros mouth every day Oxycodone-Aceta - Hx Tablets 5-325m Bitting, minophen 01/10/2018 CHRISTOPHE Ruiz Immunizations Description No Information Available Vital Signs Date Vital Result Comment 02/21/2018 1:01pm BP Systolic Sitting Left Arm 126 mmHg BP Diastolic Sitting Left Arm 72 mmHg Heart Rate 74 /min Respiratory Rate 18 /min Height 67 inches 5'7" Weight 225.00 lb BMI (Body Mass Index) 35.2 kg/m2 BSA (Body Surface Area) 2.13 m2 [place] body weight in kilograms 67 kg 01/10/2018 9:56am BP Systolic Sitting Left Arm 132 mmHg BP Diastolic Sitting Left Arm 88 mmHg Body Temperature 97.3 F Heart Rate 86 /min Weight 220.00 lb O2 % BldC Oximetry 97 % 12/15/2017 4:05pm BP Systolic Sitting Right Arm 118 mmHg BP Diastolic Sitting Right Arm 68 mmHg Body Temperature 96.2 F Heart Rate 101 /min Respiratory Rate 22 /min Height 66 inches 5'6" Weight 214.00 lb BMI (Body Mass Index) 34.5 kg/m2 BSA (Body Surface Area) 2.06 m2 [place] body weight in kilograms 64 kg O2 % BldC Oximetry 98 % 12/08/2017 3:44pm BP Systolic Sitting Right Arm 124 mmHg BP Diastolic Sitting Right Arm 60 mmHg Body Temperature 98.0 F Heart Rate 82 /min Height 218.2 inches 18'2.20" [place] body weight in kilograms 479 kg 11/10/2017 6:53pm BP Systolic Sitting Left Arm 106 mmHg BP Diastolic Sitting Left Arm 64 mmHg Body Temperature 99.2 F Heart Rate 76 /min Height 67 inches 5'7" Weight 200.00 lb BMI (Body Mass Index) 31.3 kg/m2 BSA (Body Surface Area) 2.02 m2 [place] body weight in kilograms 67 kg 09/30/2017 3:11pm BP Systolic Sitting Left Arm 126 mmHg BP Diastolic Sitting Left Arm 72 mmHg Heart Rate 80 /min Respiratory Rate 18 /min Height 67 inches 5'7" Weight 205.00 lb BMI (Body Mass Index) 32.1 kg/m2 BSA (Body Surface Area) 2.04 m2 [place] body weight in kilograms 67 kg 09/06/2017 10:36am BP Systolic 134 mmHg BP Diastolic 82 mmHg Body Temperature 97.0 F Heart Rate 88 /min Respiratory Rate 20 /min Height 67 inches 5'7" Weight 202.00 lb BMI (Body Mass Index) 31.6 kg/m2 BSA (Body Surface Area) 2.03 m2 [place] body weight in kilograms 67 kg O2 % BldC Oximetry 97 % 08/16/2017 9:16am BP Systolic Sitting Left Arm 113 mmHg BP Diastolic Sitting Left Arm 71 mmHg Body Temperature 98.4 F Heart Rate 86 /min Respiratory Rate 18 /min Height 67 inches 5'7" Weight 199.00 lb BMI (Body Mass Index) 31.2 kg/m2 BSA (Body Surface Area) 2.02 m2 [place] body weight in kilograms 67 kg O2 % BldC Oximetry 97 % 07/29/2017 2:38pm BP Systolic Sitting Left Arm 118 mmHg BP Diastolic Sitting Left Arm 64 mmHg Body Temperature 97.6 F Heart Rate 86 /min Respiratory Rate 17 /min Height 67 inches 5'7" Weight 199.00 lb BMI (Body Mass Index) 31.2 kg/m2 BSA (Body Surface Area) 2.02 m2 [place] body weight in kilograms 67 kg 07/05/2017 10:16am BP Systolic 112 mmHg BP Diastolic 68 mmHg Body Temperature 97.6 F Heart Rate 77 /min Respiratory Rate 17 /min Height 67 inches 5'7" Weight 198.00 lb BMI (Body Mass Index) 31.0 kg/m2 BSA (Body Surface Area) 2.01 m2 [place] body weight in kilograms 67 kg O2 % BldC Oximetry 96 % 01/06/2011 10:58am Height 67 inches 5'7" Weight 216.00 lb BMI (Body Mass Index) 33.8 kg/m2 Results Test Date Facility Test Result H/L Range Note Systemic Lupus 12/09/[address] [facility] [address] Ra Latex <10.0 IU/mL 0.0- 13.9 1 Erythem. Profil [address] [place] [address] [phone] Anti-Dna Antibody ([place]) 17 IU/mL High 0-9 2 SM Antibody <0.2 AI 0.0-0.9 STORE ASSOCIATE Antibody <0.2 AI 0.0-0.9 Sjogrens Antibodies (Ssa) <0.2 AI 0.0-0.9 Antichromatin Antibodies <0.2 AI 0.0-0.9 Sjogrens Antibodies (SSB) <0.2 AI 0.0-0.9 Lyme AB/Western 12/09/[address] [facility] [address] Lyme Total < 0.91 ISR 0.00- 0.90 3 Blot Reflex [address] [place] [address] AB/[place] [address] [phone] Lyme Disease Antibody,QT,Igm < 0.80 index 0.00-0.79 4 Rheumatoid Panel 12/09/[address] Sedimentation Rate <pending> ([facility]) [address] [place] [address] [phone] Uric Acid <pending> Rheumatoid Factor Screen < 10.0 IU/mL N 0.0-15.0 C-Reactive Protein,Quant <pending> Antinuclear Antibodies, Ifa Negative . 5 Laboratory test 12/09/[address] C-Reactive 36.3 mg/L High < 3.[address] [place] [address] Protein,Quant [place], [place] [id number] [phone] Uric Acid 4.6 mg/dL N 3.5-7.2 Comprehensive Metabolic 12/09/[address] Glucose 133 mg/dL High 74-[address] [place] [address] [phone] BUN 14 mg/dL N 7-18 Creatinine 0.8 mg/dL N 0.6-1.3 Glom Filtration Rate, Estimate >60 mL/min >60 If >60 mL/min >60 6 BUN/Creat 17.5 ratio Sodium 139 mmol/L N 136-145 Potassium 4.4 mmol/L N 3.5-5.1 Chloride 102 mmol/L N 98-107 Carbon Dioxide 30 mmol/L N 21-32 Anion Gap 7 mEq/L Low 8-16 Calcium 8.6 mg/dL N 8.5-10.1 Total Protein 7.2 g/dL N 6.4-8.2 Albumin 3.3 g/dL Low 3.4-5.0 Globulin 3.9 g/dL N 1.9-4.3 Alb/Glob 0.8 ratio Bilirubin,Total 0.4 mg/dL N 0.2-1.0 Sgot/Ast 15 U/L N 15-37 SGPT/Alt 23 U/L N 12-78 Alkaline Phosphatase 106 U/L N 45-117 CBC W/Automated Diff 12/09/[address] White Blood 7.9 K/uL N 3.4-10.5 [address] [facility] [place] [address] [phone] Red Blood Count 4.48 M/uL N 4.20-5.80 Hemoglobin 11.8 gm/dL Low 12.8-17.0 Hematocrit 37.9 % Low 38.0-48.0 Mean Cell Volume 84.6 fl N 80.0-96.0 Mean Corpuscular HGB 26.3 pg Low 27.0-33.0 Mean Corpuscular HGB Conc 31.1 g/dL Low 31.7-36.0 Platelet Count 216 K/uL N 155-360 Red Cell Distri Width SD 41.3 fl N 36-51 Red Cell Distri Width %CV 13.7 % N 11.6-15.8 Mean Platelet Volume 10.3 fL N 6.6-10.6 Neut% 82.3 % High 33.0-73.0 Lymph % 13.1 % Low 20.0-42.0 Keith % 4.4 % N 0.0-10.0 Eo% 0.1 % N 0.0-6.6 Bas% 0.1 % N 0.0-1.1 Neut# 6.50 K/uL N 1.8-7.0 Lymph # 1.04 K/uL N 1.0-4.0 Keith # 0.35 K/uL N 0.0-0.8 Eos # 0.01 K/uL N 0.0-0.5 Baso # 0.01 K/uL N 0.0-0.1 Laboratory test finding 12/09/[address] CK 96 U/L N 39-[address] [place] [address] [phone] Sedimentation Rate 33 mm/hr High 0-20 7 Comprehensive Metabolic 09/23/[address] Glucose 96 mg/dL N 74 -106 [address] [place] [address] [phone] BUN 15 mg/dL N 7-18 Creatinine 0.9 mg/dL N 0.6-1.3 Glom Filtration Rate, Estimate >60 mL/min >60 If >60 mL/min >60 9 BUN/Creat 16.6 ratio Sodium 140 mmol/L N 136-145 Potassium 4.2 mmol/L N 3.5-5.1 Chloride 105 mmol/L N 98-107 Carbon Dioxide 29 mmol/L N 21-32 Anion Gap 6 mEq/L Low 8-16 Calcium 8.7 mg/dL N 8.5-10.1 Total Protein 7.3 g/dL N 6.4-8.2 Albumin 3.5 g/dL N 3.4-5.0 Globulin 3.8 g/dL N 1.9-4.3 Alb/Glob 0.9 ratio Bilirubin,Total 0.5 mg/dL N 0.2-1.0 Sgot/Ast 13 U/L Low 15-37 10 SGPT/Alt 24 U/L N 12-78 Alkaline Phosphatase 90 U/L N 45-117 Comprehensive Metabolic 08/31/[address] [facility] [address] Glucose 104 mg/dL N 74-106 11 Panel [address] [place] [address] [phone] BUN 15 mg/dL N 7-18 Creatinine 0.9 mg/dL N 0.6-1.3 Glom Filtration Rate, Estimate >60 mL/min >60 If >60 mL/min >60 12 BUN/Creat 16.6 ratio Sodium 143 mmol/L N 136-145 Potassium 4.3 mmol/L N 3.5-5.1 Chloride 106 mmol/L N 98-107 Carbon Dioxide 31 mmol/L N 21-32 Anion Gap 6 mEq/L Low 8-16 Calcium 8.5 mg/dL N 8.5-10.1 Total Protein 7.1 g/dL N 6.4-8.2 Albumin 3.7 g/dL N 3.4-5.0 Globulin 3.4 g/dL N 1.9-4.3 Alb/Glob 1.1 ratio Bilirubin,Total 0.6 mg/dL N 0.2-1.0 Sgot/Ast 16 U/L N 15-37 SGPT/Alt 23 U/L N 12-78 Alkaline Phosphatase 86 U/L N 45-117 LDL Cholesterol Profile 08/31/[address] [facility] [address] Cholesterol 139 mg/dL <[phone] [place] [address] [phone] Triglycerides 74 mg/dL <150 14 HDL Cholesterol 37 mg/dL Low >40 15 LDL-Cholesterol 87 mg/dL < 100 16 CBS W/Automated Diff 08/31/[address] [facility] [address] White Blood 5.9 K/uL N 3.4-10.[address] [place] [address] [phone] Red Blood Count 4.93 M/uL N 4.20-5.80 Hemoglobin 14.6 gm/dL N 12.8-17.0 Hematocrit 44.1 % N 38.0-48.0 Mean Cell Volume 89.5 fl N 80.0-96.0 Mean Corpuscular HGB 29.6 pg N 27.0-33.0 Mean Corpuscular HGB Conc 33.1 g/dL N 31.7-36.0 Platelet Count 168 K/uL N 155-360 Red Cell Distri Width SD 40.3 fl N 36-51 Red Cell Distri Width %CV 12.7 % N 11.6-15.8 Mean Platelet Volume 10.3 fL N 6.6-10.6 Neut% 67.8 % N 33.0-73.0 Lymph % 22.0 % N 20.0-42.0 Keith % 5.6 % N 0.0-10.0 Eo% 4.1 % N 0.0-6.6 Bas% 0.5 % N 0.0-1.1 Neut# 4.02 K/uL N 1.8-7.0 Lymph # 1.30 K/uL N 1.0-4.0 Keith # 0.33 K/uL N 0.0-0.8 Eos # 0.24 K/uL N 0.0-0.5 Baso # 0.03 K/uL N 0.0-0.1 Laboratory test 02/12/2015 [facility] Ferritin 53 ng/mL 26-388 finding [address] [place] [address] [phone] Vitamin B12 And 02/12/2015 [facility] Vitamin B12 318 pg/mL [phone] Folate [address] [place] [address] [phone] Folic Acid 10.8 ng/mL 3.1-17.5 1 M79.603 2 Negative <5 Equivocal 5 - 9 Positive >9 3 Negative <0.91 Equivocal 0.91 - 1.09 Positive >1.09 4 Negative <0.80 Equivocal 0.80 - 1.19 Positive >1.19 IgM levels may peak at 3-6 weeks post infection, then gradually decline. Performed at: RN - [facility] [address] [id number] Specialized Developer: Sandra Rayo MD, Phone: [phone] 5 Negative <1:80 Borderline 1:80 Positive >1:80 6 Note: Persistent reduction for 3 months or more in an eGFR <60 mL/min/1.73 m2 defines CKD. Patients with eGFR values >/=60 mL/min/1.73 m2 may also have CKD if evidence of persistent proteinuria is present. The original MDRD equation for estimated GFR is not valid for patients less than 18 years of age. Additional information may be found at www.kdoqi.org. 7 Method: Sediplast Modified Westergren 8 M16.9, M70.62, M25.552 has appt 09/30/17 for surgical clearance 9 Note: Persistent reduction for 3 months or more in an eGFR <60 mL/min/1.73 m2 defines CKD. Patients with eGFR values >/=60 mL/min/1.73 m2 may also have CKD if evidence of persistent proteinuria is present. The original MDRD equation for estimated GFR is not valid for patients less than 18 years of age. Additional information may be found at www.kdoqi.org. 10 Values below the stated reference ranges of AST and ALT can be seen in normal populations. Clinical correlation is suggested. 11 I10 E78.5 Z13.0 12 Note: Persistent reduction for 3 months or more in an eGFR <60 mL/min/1.73 m2 defines CKD. Patients with eGFR values >/=60 mL/min/1.73 m2 may also have CKD if evidence of persistent proteinuria is present. The original MDRD equation for estimated GFR is not valid for patients less than 18 years of age. Additional information may be found at www.kdoqi.org. 13 Reference Guidelines*: Desirable: ........... < 200 mg/dL Borderline High: ..... 200-239 mg/dL High: ................ >=240 mg/dL * The National Cholesterol Education Program (NCEP) 14 Reference Guidelines*: Normal: ............. < 150 mg/dL Borderline High: .... 150-199 mg/dL High: ............... 200-499 mg/dL Very High: .......... > 500 mg/dL * Source: National Cholesterol Education Program (NCEP) 15 Reference Guidelines*: Low HDL: ..... < 40 mg/dL Normal: ..... 40-60 mg/dL Desirable: ... > 60 mg/dL *The National Cholesterol Education Program(NCEP) 16 Reference Guidelines*: Optimal:........... <100 mg/dL Near Optimal....... 100-129 mg/dL Borderline High.... 130-159 mg/dL High............... 160-189 mg/dL Very High.......... 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 K59.00 Constipation, unspecified Office Visit 01/10/2018 10:00a Lenan Fernandez FNP M54.[address] R20.2 Paresthesia of skin M79.621 Pain in right upper arm Z96.642 Presence of left artificial hip joint Office Visit 12/15/2017 4:15p Leann Fernandez M79.603 Pain in arm, [address] 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 K59.00 Constipation, unspecified Office Visit 12/08/2017 3:30p Leann Fernandez, M25.512 Pain in left [address] 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 shoulder M25.511 Pain in right shoulder M79.603 Pain in arm, unspecified Office Visit 11/10/2017 6:30p [facility] Milagros Hussein, I10 Essential (primary) Anatoly VACA MD hypertension R55 Syncope and collapse Z96.642 Presence of left artificial hip joint Office Visit 09/30/2017 Family Magy, Z01.818 Encounter for 2:45p Medicine CT Sanchez other RD preprocedural examination M16.9 Osteoarthritis of hip, unspecified I10 Essential (primary) hypertension Office Visit 09/06/2017 10:45a [facility] Keenan M16.[address] MD Milagros hip, unspecified M70.62 Trochanteric bursitis, left hip 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 Fear of injections and transfusions I10 Essential (primary) hypertension F25.1 Schizoaffective disorder, depressive type Office Visit 08/16/2017 Orthopaedic Sawyer, M16.12 Unilateral primary 9:15a Office Tobi Stuart osteoarthritis, left hip Office Visit 07/29/2017 Orthopaedic Sawyer, M25.552 Pain in left hip 2:30p Office Tobi Stuart M16.12 Unilateral primary osteoarthritis, left hip Office Visit 07/05/2017 10:15a [facility] Milagros Hussein, M25.552 Pain in left [address] hip H50.9 Unspecified strabismus F25.1 Schizoaffective disorder, depressive type F32.9 Major depressive disorder, single episode, unspecified F40.231 Fear of injections and transfusions Office Visit 03/08/2015 [facility] Vladimir, F25.1 Schizoaffective 11:23a [facility] Tobi Brady disorder, depressive type Office Visit 02/06/2015 [facility] Vladimir F32.9 Major depressive 3:13p [facility] Tobi Brady disorder, single episode, unspecified Office Visit 01/06/2011 Orthopaedic Armin, 840.4 Sprains & Strains 11:10a Office Jerry Reed MD Rotator Cuff (Capsule) Plan of Treatment Future Appointment(s):05/11/2018 1:00 pm - Milagros Hussein MD at [facility]02/21/2018 - Leann Cano, FNPM79.603 Pain in arm, unspecifiedComments:Continue taking prednisone daily.So glad you are doing better.F/u with Dr. Young in Mar + qknjynlshF12.00 Constipation, unspecifiedComments:Make sure you're drinking 60 ounces of plain water daily at least!Try to walk for exercise 15-30 mins daily, exercise is a natural laxativeMiralax daily, according to package directions. IT will take alittle trial and error to find a daily dose that works for you.Dulcolax or Colace are stool softeners to try as well.Follow up:as needed for no improvement or worsening
[2018-03-28 14:00] VITALS: BP 154/89
--- NOTE | 2018-03-28 14:17 | UC ---
Skin Complaint HPI - HPI Summary HPI Summary: 62 yo male presents with left elbow swelling and pain for the last 2 days. 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 Over the last 4-5 days has been noticing pain to his left elbow, but over the last 2 days has noticed some swelling and redness. He has not let it rest or taken anything OTC for his symptoms. Denies injury, numbness, tingling, or fever. - History of Current Complaint Chief Complaint: UCUpperExtremity Time Seen by Provider: 03/28/18 14:11 Stated Complaint: LT ELBOW INJURY Hx Obtained From: Patient Onset/Duration: Gradual Onset Skin Exposure Onset/Duration: Days Ago Timing: Constant Onset Severity: Mild Current Severity: Moderate Pain Intensity: 5 Pain Scale Used: 0-10 Numeric - Allergy/Home Medications Allergies/Adverse Reactions: Allergies Allergy/AdvReac Type Severity Reaction Status Date / Time haloperidol [From Haldol] Allergy See Comment Verified 03/28/18 13:56 paroxetine [From Paxil] Allergy sleepiness Verified 03/28/18 13:56 Penicillins Allergy Difficulty Verified 03/28/18 13:56 Breathing sertraline [From Zoloft] Allergy sleepiness Verified 03/28/18 13:56 PMH/Surg Hx/FS Hx/Imm Hx - Additional Past Medical History Additional PMH: BPH Endocrine History: Dyslipidemia Cardiovascular History: Hypertension Psychological History: Anxiety, Depression, Schizophrenia - Surgical History Surgical History: Yes Surgery Procedure, Year, and Place: TONSILLECTOMY, L hip replacement - Family History Known Family History: Positive: Cardiac Disease, Hypertension - Social History Lives: With Family Alcohol Use: Rare Alcohol Amount: 1-2 per week Substance Use Type: None Smoking Status (MU): Never Smoked Tobacco Have You Smoked in the Last Year: No - Immunization History Most Recent Influenza Vaccination: 2016 Most Recent Pneumonia Vaccination: never Vaccination Up to Date: Yes Review of Systems All Other Systems Reviewed And Are Negative: Yes Constitutional: Positive: Negative Skin: Positive: Negative Respiratory: Positive: Negative Cardiovascular: Positive: Negative Neurovascular: Positive: Negative Musculoskeletal: Positive: Other: - Left elbow pain Neurological: Positive: Negative Psychological: Positive: Negative Physical Exam - Summary Physical Exam Summary: GENERAL: NAD. WDWN. No pain distress. SKIN: No rashes, sores, lesions, or open wounds. CHEST: No accessory muscle use. Breathing comfortably and in no distress. CV: Pulses intact radial and ulnar. Cap refill <2seconds MSK: LEFT ELBOW: Proximal olecranon with moderate edema and slight erythema and warmth. Mild TTP. FROM with mild pain during full flexion. Strength 5/5 including bottle blowing machine tender strength. No open wounds. NEURO: Alert. Sensations intact hand and all fingers. PSYCH: Age appropriate behavior. Triage Information Reviewed: Yes Vital Signs: Initial Vital Signs Temp 98.1 F 03/28/18 13:58 Pulse 93 03/28/18 13:58 Resp 20 03/28/18 13:58 BP 154/89 03/28/18 13:58 Pulse Ox 97 03/28/18 13:58 Vital Signs Reviewed: Yes Course/Dx - Course Course Of Treatment: Suspect bursitis, but will start antibiotics to cover for cellulitis in addition to NSAIDs. Advised to RICE and f/u if symptoms do not improve. - Diagnoses Provider Diagnosis: Olecranon bursitis, left elbow Discharge - Sign-Out/Discharge Documenting (check all that apply): Patient Departure All imaging exams completed and their final reports reviewed: No Studies - Discharge Plan Condition: Stable Disposition: HOME Prescriptions: Clindamycin Cap(NF) [Clindamycin Cap 300 mg Cap(NF)] 300 mg PO TID #21 cap Naproxen [Naproxen 500 mg tab] 500 mg PO BID PRN #30 tablet.dr DOLAN Reason: Pain Patient Education Materials: Elbow Bursitis (ED) Referrals: Phuong Bhatti NP [Primary Care Provider] - Additional Instructions: If you develop a fever, shortness of breath, chest pain, new or worsening symptoms - please call your PCP or go to the ED. Your blood pressure was high at todays visit. Please see your primary provider within 4 weeks for recheck and re-evaluation. 1) Apply ice to your elbow 4-5 times a day to reduce pain and swelling 2) If your pain, redness, and swelling worsen - please be rechecked. - Billing Disposition and Condition Condition: STABLE Disposition: Home
== END 2018-03-28 14:30 | disposition home or self-care (01) ==
LOC: UCCORT 13:23
DX: M70.22 Olecranon bursitis, left elbow (principal); I10 Essential (primary) hypertension; Z88.8 Allergy status to other drugs, medicaments and biological substances; Z88.0 Allergy status to penicillin; Y93.89 Activity, other specified
CPT/HCPCS: 99212; G0463

== ENCOUNTER 2019-05-17 12:02 | Emergency (ER) | payer MEDICARE, OTHER ==
--- NOTE | 2019-05-17 12:36 | UC ---
Throat Pain/Nasal Dariel HPI - HPI Summary HPI Summary: 64 y/o male presents to the urgent care c/o dry cough. sinus congestion w/ clear nasal discharge, fatigue and body aches for the past 2 days. He has been taking Ny[place]ill PO w/o any improvement. Pt reports his was sick w/ flu like symptoms, but now is getting better. Pt denies fever, but he has felt hot at times. Pt denies STYLES dizziness, chest pain, wheezing, recent travel, SOB, abdominal pain, N/V/D or exposure w/ someone w/ COVID 19. . - History of Current Complaint Chief Complaint: UCGeneralIllness Stated Complaint: COUGH,SINUS,FATIGUE Time Seen by Provider: 05/17/19 12:34 Hx Obtained From: Patient Onset/Duration: Gradual Onset, Lasting Days - 2 days, Still Present Severity: Mild Pain Intensity: 0 Pain Scale Used: 0-10 Numeric Cough: Nonproductive Associated Signs & Symptoms: Positive: Sinus Discomfort, Nasal Discharge - clear , Other - fatigue. Negative: Dysphagia, Wheezing, Fever - Epiglottits Risk Factors Epiglottis Risk Factors: Negative - Allergies/Home Medications Allergies/Adverse Reactions: Allergies Allergy/AdvReac Type Severity Reaction Status Date / Time haloperidol [From Haldol] Allergy Severe See Comment Verified 05/17/19 12:09 paroxetine [From Paxil] Allergy Severe sleepiness Verified 05/17/19 12:09 Penicillins Allergy Severe Difficulty Verified 05/17/19 12:09 Breathing sertraline [From Zoloft] Allergy Severe sleepiness Verified 05/17/19 12:09 Home Medications: Home Medications Simvastatin TAB(NF) [Zocor 20 MG (NF)] 20 mg PO QPM 11/19/14 [History Confirmed 05/17/19] Multivitamins/Minerals TAB* [Theragran/minerals TAB*] 1 tab PO QAM 04/11/17 [ History Confirmed 05/17/19] Cholecalciferol (Vitamin D3) [Vitamin D3] 1,000 units PO QAM 09/28/17 [History Confirmed 05/17/19] DULoxetine DR CAP* [Cymbalta CAP*] 60 mg PO BID 09/28/17 [History Confirmed 03/06] buPROPion HCl [Bupropion HCl Sr] 150 mg PO QAM 09/28/17 [History Confirmed 05/16] PMH/Surg Hx/FS Hx/Imm Hx Previously Healthy: Yes Endocrine History: Dyslipidemia Psychological History: Anxiety, Depression - Surgical History Surgical History: Yes Surgery Procedure, Year, and Place: TONSILLECTOMY. 09/2016 LEFT hip replacement - [facility] - Family History Known Family History: Positive: Cardiac Disease, Hypertension - Social History Occupation: Employed Full-time Lives: With Family Alcohol Use: None Alcohol Amount: 1-2 per week Substance Use Type: None Smoking Status (MU): Never Smoked Tobacco Have You Smoked in the Last Year: No - Immunization History Most Recent Influenza Vaccination: 2016 Most Recent Pneumonia Vaccination: never Vaccination Up to Date: Yes Review of Systems All Other Systems Reviewed And Are Negative: Yes Constitutional: Positive: Fatigue, Other - body aches Skin: Positive: Negative Eyes: Positive: Negative ENT: Positive: Nasal Discharge - clear, Sinus Congestion Respiratory: Positive: Cough - dry Cardiovascular: Positive: Negative Gastrointestinal: Positive: Negative Genitourinary: Positive: Negative Motor: Positive: Negative Neurovascular: Positive: Negative Musculoskeletal: Positive: Myalgia Neurological/Mental Status: Positive: Negative Psychological: Positive: Negative Is Patient Immunocompromised?: No Physical Exam - Summary Physical Exam Summary: VITAL SIGNS: Reviewed. GENERAL: Patient is a well developed and nourished male who is sitting comfortably in the examining table. Patient is not in any acute respiratory distress. HEAD AND FACE: No signs of trauma. No ecchymosis, hematomas or skull depressions. No sinus tenderness. EYES: PERRLA, EOMI x 2, No injected conjunctiva, no nystagmus. No photophobia. EARS: Hearing grossly intact. Ear canals and tympanic membranes are within normal limits. MOUTH: Positive pharynx with mild erythema, no exudates, No B/L tonsillar enlargement , no exudate. Uvula in midline. edematous nasal mucosa w/ clear nasal discharge, clear PND NECK: Supple, trachea is midline, Positive anterior cervical lymphadenopathy, no JVD, no carotid bruit, no c-spine tenderness, neck with full ROM. No meningeal signs, no Kernig's or brudzinskis signs. CHEST: Symmetric, no tenderness at palpation LUNGS: Clear to auscultation bilaterally. No wheezing or crackles. CVS: Regular rate and rhythm, S1 and S2 present, no murmurs or gallops appreciated. ABDOMEN: Soft, non-tender. No signs of distention. No rebound no guarding, and no masses palpated. Bowel sounds are normal. EXTREMITIES: FROM in all major joints, no edema, no cyanosis or clubbing. NEURO: Alert and oriented x 3. No acute neurological deficits. Pt follows commands. SKIN: Dry and warm. Triage Information Reviewed: Yes Throat Pain/Nasal Course/Dx - Course Course Of Treatment: 64 y/o male presents to the urgent care c/o dry cough. sinus congestion w/ clear nasal discharge, fatigue and body aches for the past 2 days. He has been taking Nyquill PO w/o any improvement. Pt reports his was sick w/ flu like symptoms, but now is getting better. Pt denies fever, but he has felt hot at times. Pt denies STYLES dizziness, chest pain, wheezing, recent travel, SOB, abdominal pain, N/V/D or exposure w/ someone w/ COVID 19. Hx obtained. Pt w/ URI on examination. Rapid strep ordered, result: negative. Influenza A&B : negative. COVID19 testing ordered since was also sick last week but getting better. Pt advised results will have a turn over of 3-7 days. Pt advised to quarantine while waiting for the results and she will get a call from us to notify him of the results. Pt advised to take Tylenol to alleviate symptoms. Increase hydration and boost his immune system by eating well, taking Vitamin C and avoiding strenuous exercise. D/C instructions explained. Pt understood and agreed w/ plan of care. - Differential Dx/Diagnosis Differential Diagnosis/HQI/PQRI: Influenza, Laryngitis, Pharyngitis, Sinusitis, URI Provider Diagnosis: Upper respiratory infection Discharge ED - Sign-Out/Discharge Documenting (check all that apply): Patient Departure - D/C home All imaging exams completed and their final reports reviewed: No Studies - Discharge Plan Condition: Stable Disposition: HOME Patient Education Materials: Upper Respiratory Infection (ED) Forms: COVID-19 Tested & Isolation Referrals: Phuong Bhatti NP [Primary Care Provider] - 1 Week Additional Instructions: 1-Rapid Strep: negative. Rapid Influenza A&B: negative. 2- Oropharyngeal swabs have been sent to the lab to r/o COVID 19, you will be notified of any abnormality as soon as we get the results. 3-Please Take Tylenol PO q6-8hrs prn as instructed after meals to alleviate fever, or myalgias. Take Vitamin C to boost your immune system. Increase fluid intake, eat well, rest and avoid strenuous exercise. 4- Please isolate at home until you get the results. Follow instructions as described below Isolation - important Facts to Know after being Tested Please note that after being tested, you must go straight home, since you are now on mandatory home isolation as directed by the Health Department. Your test is expected to return in about one week and you will be contacted with the result of your test. Our office will contact you daily on behalf of the Health Department to ensure that you are in compliance with mandatory home isolation. What does mandatory isolation mean? You must go straight home without any stops on the way. You must stay from all others in your home (even children - for their safety), If possible, use a bathroom that only you use. If this is not possible, it must be disinfected after you use it, or you may use a commode in your bedroom. Sleep in a separate bedroom and have all meals etc. brought to your bedroom door. Visitors or non-household members are not allowed to enter your home for the duration of the isolation period. You cannot go to work, school, public places, or social gatherings. You are not to leave home for any purpose until you receive negative results and your status permits it and are counseled by your doctor. The following advice may be of help: Household Members: Household members are to remain from you inside your home and will not be allowed to use your bedroom or bathroom. Visitors: Visitors or non-household members are not allowed to enter your home for the duration of the isolation period. If you develop new symptoms or need medical treatment: call your primary care practitioner for direction first. Please do not go to the ER or Urgent Care without speaking to your doctor. In case of emergency call 911. You must state that you are under isolation for COVID-19 testing. Important points: You will be informed about your results as soon as they come in it could take about a week. If your test is negative, you are released from isolation if your condition permits. You should remain home for as long as you have symptoms, including but not limited to cough, higher than normal temperature for you, or shortness of breath. If you have no symptoms but did have an exposure you will have to remain in quarantine for the full 14 days. If your test is positive, remain in isolation and you can expect a phone call from the health department also for further instructions. Please comply with your isolation for the sake of your loved ones and others. We understand this is a difficult time for you and our community. We want you to know that all of us and the Health Department are here to provide care for you and your family. We are sorry for the difficulties this situation is causing you. Please remain calm and act responsibly - Billing Disposition and Condition Condition: STABLE Disposition: Home
[2019-05-17 12:57] VITALS: BP 115/78
[2019-05-17 13:15] LABS: Influenza A Molecular Negative (Negative); Influenza B Molecular Negative (Negative)
== END 2019-05-17 13:28 | disposition home or self-care (01) ==
LOC: UCCORT 12:02
DX: J06.9 Acute upper respiratory infection, unspecified (principal); Z20.828 Contact with and (suspected) exposure to other viral communicable diseases; E78.5 Hyperlipidemia, unspecified; F41.9 Anxiety disorder, unspecified; F32.9 Major depressive disorder, single episode, unspecified; Z79.899 Other long term (current) drug therapy; Z96.642 Presence of left artificial hip joint; Z88.0 Allergy status to penicillin; Z88.8 Allergy status to other drugs, medicaments and biological substances
CPT/HCPCS: 87635; 87651; 99211; G0463